=== PATIENT | male | born 1950 | race Caucasian/White ===

== ENCOUNTER 2020-11-04 12:26 | Emergency (ER) | payer MEDICARE ==
[2020-11-04] MEDS ORDERED: Acetaminophen 500 MG TAB ONE (13:06)
[2020-11-04 13:16] LABS: #Basophils 0.1 thou/uL (0.0-0.2); #Lymphocytes 0.4 thou/uL (1.20-3.40); #Monocytes 0.5 thou/uL (0.11-0.59); #Neutrophils 5.7 thou/uL (1.40-6.50); %Eosinophils 0.5 % (0.0-10.0); %Lymphocytes 5.8 % (21.0-51.0); %Monocytes 7.5 % (0.0-10.0); %Neutrophils 85.2 % (42.0-75.0); Hemoglobin 11.5 g/dL (14.0-18.0); Mean Corpuscular HGB CONC 33.6 g/dL (32.0-36.0); Mean Corpuscular Hemoglobin 31.4 pg (27.0-31.0); Mean Corpuscular Volume 93.4 fL (78.0-98.0); Mean Platelet Volume 6.8 fL (7.4-10.4); Platelet Count 213 thou/uL (130-400); RBC Distribution Width 12.7 % (11.5-14.5); Red Blood Cell (RBC) Count 3.67 mill/uL (4.70-6.10); White Blood Cell (WBC) Count 6.7 thou/uL (4.8-10.8)
[2020-11-04 13:38] LABS: ALT (SGPT) 47 U/L (8-55); AST (SGOT) 53 U/L (5-34); Albumin 4.3 g/dL (3.4-4.8); Alkaline Phosphatase 56 U/L (40-110); Anion Gap 24 mmol/L (10-20); BUN (Urea Nitrogen) 10 mg/dL (8.4-25.7); Bilirubin, Total 0.5 mg/dL (0.2-1.2); Calc. Creatinine Clearance 0 mL/min (70-130); Calcium 9.1 mg/dL (7.8-10.44); Carbon Dioxide 17 mmol/L (23-31); Chloride 91 mmol/L (98-107); Globulin 2.6 g/dL (2.4-3.5); Glucose 107 mg/dL (83-110); Potassium 3.9 mmol/L (3.5-5.1); Protein, Total 6.9 g/dL (5.8-8.1); Sodium 128 mmol/L (136-145)
[2020-11-04] MEDS ORDERED: Losartan 25 MG TAB PO SCH (15:30)
== END 2020-11-04 17:29 | disposition home or self-care (01) ==
LOC: ERS 12:26
DX: R56.9 Unspecified convulsions (principal); S50.311A Abrasion of right elbow, initial encounter; X58.XXXA Exposure to other specified factors, initial encounter
CPT/HCPCS: 36415; 70450; 72125; 80053; 84146; 84484; 85025; 93005

== ENCOUNTER 2021-03-04 21:10 | Inpatient (IN) | payer MEDICARE ==
[~2021-03-04 21:10] MED LIST: Heparin 1,000 UNITS/ML VIAL ONE
[2021-03-04 21:59] LABS: Hemoglobin 5.3 g/dL (14.0-18.0); INR-International Normal Ratio 1.2; Mean Corpuscular HGB CONC 35.4 g/dL (32.0-36.0); Mean Corpuscular Hemoglobin 33.8 pg (27.0-31.0); Mean Corpuscular Volume 95.6 fL (78.0-98.0); Mean Platelet Volume 7.6 fL (7.4-10.4); Platelet Count 201 thou/uL (130-400); Prothrombin Time 15.3 sec (12.0-14.7); RBC Distribution Width 13.5 % (11.5-14.5); Red Blood Cell (RBC) Count 1.55 mill/uL (4.70-6.10); White Blood Cell (WBC) Count 10.2 thou/uL (4.8-10.8)
[2021-03-04 22:00] LABS: PTT 31.9 sec (22.9-36.1)
[2021-03-04 22:02] LABS: ALT (SGPT) 20 U/L (8-55); AST (SGOT) 23 U/L (5-34); Albumin 2.8 g/dL (3.4-4.8); Alkaline Phosphatase 48 U/L (40-110); Anion Gap 12 mmol/L (10-20); BUN (Urea Nitrogen) 28 mg/dL (8.4-25.7); Bilirubin, Total 0.6 mg/dL (0.2-1.2); Calc. Creatinine Clearance 0 mL/min (70-130); Calcium 7.7 mg/dL (7.8-10.44); Carbon Dioxide 26 mmol/L (23-31); Chloride 86 mmol/L (98-107); Globulin 2.1 g/dL (2.4-3.5); Glucose 149 mg/dL (83-110); Potassium 3.2 mmol/L (3.5-5.1); Protein, Total 4.9 g/dL (5.8-8.1); Sodium 121 mmol/L (136-145)
[2021-03-04 22:14] LABS: Band 9 % (5-11); Lymphocytes 3 % (21-51); MDiff Complete? YES; Monocytes 3 % (0-10); Neutrophil 85 % (42-75); Nucleated RBC 1 % (0); Platelet Morphology Comment Appears Adequate
[2021-03-04 23:12] LABS: Alcohol Less than 10 mg/dL (Less than 10); Magnesium 1.4 mg/dL (1.6-2.6)
[2021-03-04 23:14] LABS: Acetaminophen Less than 6.0 mcg/mL (10.0-30.0); Alcohol Less than 10 mg/dL (Less than 10); Salicylate Less than 8.0 mg/dL (15.0-30.0)
[2021-03-04] MEDS ORDERED: Lorazepam 2 MG/ML VIAL ONE (23:31)
[2021-03-05] MEDS ORDERED: Acetaminophen 650 MG Suppository PR PRN (00:21)
[2021-03-05] MEDS ORDERED: Ondansetron PF 4 MG/2 ML Vial IVP PRN (00:21)
[2021-03-05] MEDS ORDERED: Ondansetron ODT 4 MG TAB PO PRN (00:21)
[2021-03-05] MEDS ORDERED: Pantoprazole 40 MG VIAL IVP SCH (01:00)
[2021-03-05] MEDS ORDERED: Magnesium Sulfate 4 GM in Sodium Chloride 0.9% 250 ML 250 ML IVPB SCH (01:30)
[2021-03-05 01:47] LABS: Anion Gap 12 mmol/L (10-20); BUN (Urea Nitrogen) 35 mg/dL (8.4-25.7); Calc. Creatinine Clearance 0 mL/min (70-130); Carbon Dioxide 27 mmol/L (23-31); Chloride 85 mmol/L (98-107); Glucose 134 mg/dL (83-110); Potassium 3.1 mmol/L (3.5-5.1); Sodium 121 mmol/L (136-145)
[2021-03-05] MEDS ORDERED: Diazepam 5 MG TAB PO PRN (03:33)
[2021-03-05] MEDS ORDERED: Thiamine HCl 200 MG/2 ML VIAL IM SCH (03:45)
[2021-03-05] MEDS ORDERED: Lorazepam 2 MG/ML VIAL SLOW IVP SCH (03:45)
[2021-03-05] MEDS: Potassium Chloride 20 MEQ in Premix Bag 1 BAG IVPB SCH ×3 (03:48→20:31)
[2021-03-05 05:42] LABS: #Lymphocytes 0.7 thou/uL (1.20-3.40); #Monocytes 1.3 thou/uL (0.11-0.59); #Neutrophils 10.7 thou/uL (1.40-6.50); %Basophils 0.1 % (0.0-1.0); %Eosinophils 0.2 % (0.0-10.0); %Lymphocytes 5.3 % (21.0-51.0); %Monocytes 10.3 % (0.0-10.0); %Neutrophils 84.2 % (42.0-75.0); Mean Corpuscular HGB CONC 34.9 g/dL (32.0-36.0); Mean Corpuscular Hemoglobin 32.4 pg (27.0-31.0); Mean Corpuscular Volume 92.8 fL (78.0-98.0); Mean Platelet Volume 7.7 fL (7.4-10.4); Platelet Count 213 thou/uL (130-400); RBC Distribution Width 15.2 % (11.5-14.5); Red Blood Cell (RBC) Count 1.85 mill/uL (4.70-6.10); White Blood Cell (WBC) Count 12.7 thou/uL (4.8-10.8)
[2021-03-05 06:09] LABS: Iron 113 ug/dL (65-175); Iron Binding Capacity, Total 219 mcg/dL (261-462)
[2021-03-05 06:11] LABS: Anion Gap 12 mmol/L (10-20); BUN (Urea Nitrogen) 29 mg/dL (8.4-25.7); Calc. Creatinine Clearance 0 mL/min (70-130); Carbon Dioxide 25 mmol/L (23-31); Chloride 88 mmol/L (98-107); Glucose 123 mg/dL (83-110); Potassium 3.3 mmol/L (3.5-5.1); Sodium 122 mmol/L (136-145)
[2021-03-05] MEDS ORDERED: GUAIFENESIN SF SOLN 200 MG/10 ML UDCUP PO PRN (07:31)
[2021-03-05] MEDS ORDERED: Artificial Tear Sol 15 ML BOT EA EYE PRN (07:31)
[2021-03-05] MEDS ORDERED: HYDROcodone/Acetaminophen 5/325 mg Tablet PO PRN (07:31)
[2021-03-05] MEDS ORDERED: Sodium Chloride 0.65% Nasal 44 ML BOT EA NARE PRN (07:31)
[2021-03-05] MEDS ORDERED: Hydrocerin (Eucerin) Cream 120 gm Jar TOP PRN (07:31)
[2021-03-05] MEDS ORDERED: Calcium Carbonate 500 MG ChewTAB PO PRN (07:31)
[2021-03-05] MEDS ORDERED: Loperamide HCl 2 MG CAP PO PRN (07:31)
[2021-03-05] MEDS ORDERED: Senokot S 8.6-50 MG TAB PO PRN (07:31)
[2021-03-05] MEDS ORDERED: Bisacodyl 10 MG SUPP PR PRN (07:31)
[2021-03-05] MEDS ORDERED: Cepastat Lozenges 1 LOZ PO PRN (07:31)
[2021-03-05] MEDS: Amlodipine 10 MG TAB PO SCH (08:28)
[2021-03-05] MEDS: Lisinopril 20 MG TAB PO SCH ×2 (08:28→20:33)
[2021-03-05] MEDS ORDERED: Enoxaparin Sodium 40 MG/0.4 ML SYRINGE SC SCH (09:00)
[2021-03-05] MEDS: Folic Acid 1 MG TAB PO SCH (11:30)
[2021-03-05] MEDS: Multivitamin W/ Minerals 1 TAB PO SCH (11:31)
[2021-03-05] MEDS: Metoprolol Tartrate 25 MG TAB PO SCH ×2 (11:31→20:33)
[2021-03-05 11:36] LABS: Hemoglobin 6.8 g/dL (14.0-18.0)
[2021-03-05] MEDS: Pantoprazole 40 MG VIAL IVP SCH ×2 (11:58→20:32)
[2021-03-05] MEDS ORDERED: Potassium Chloride 20 MEQ in Premix Bag 1 BAG IVPB SCH (12:15)
[2021-03-05 15:00] LABS: SARS-CoV-2 NAA Rapid Test Not Detected (NotDetected)
[2021-03-05] MEDS ORDERED: SUGAMMADEX SODIUM 200 MG/2 ML VIAL ONE (15:52)
[2021-03-05] MEDS ORDERED: Fentanyl 100 MCG/2 ML VIAL ONE (15:52)
[2021-03-05] MEDS ORDERED: PROPOFOL 200 MG/20 ML VIAL ONE (16:05)
[2021-03-05] MEDS ORDERED: Ondansetron HCl/PF 4 MG/2 ML Vial IVP PRN (16:34)
[2021-03-05] MEDS: Loratadine 10 MG TAB PO PRN (20:33)
[2021-03-05] MEDS: Atorvastatin Calcium 10 MG TAB PO SCH (20:34)
[2021-03-06 01:49] LABS: Sodium 126 mmol/L (136-145)
[2021-03-06 01:52] LABS: Hemoglobin 6.2 g/dL (14.0-18.0); Mean Corpuscular Hemoglobin 32.6 pg (27.0-31.0); Mean Corpuscular Volume 93.3 fL (78.0-98.0); Mean Platelet Volume 7.1 fL (7.4-10.4); Platelet Count 206 thou/uL (130-400); Red Blood Cell (RBC) Count 1.89 mill/uL (4.70-6.10); White Blood Cell (WBC) Count 15.9 thou/uL (4.8-10.8)
[2021-03-06 02:09] LABS: Band 19 % (5-11); Lymphocytes 1 % (21-51); MDiff Complete? YES; Monocytes 8 % (0-10); Neutrophil 72 % (42-75); Nucleated RBC 1 % (0)
[2021-03-06 02:15] LABS: ALT (SGPT) 19 U/L (8-55); AST (SGOT) 28 U/L (5-34); Albumin 2.9 g/dL (3.4-4.8); Alkaline Phosphatase 43 U/L (40-110); Anion Gap 13 mmol/L (10-20); BUN (Urea Nitrogen) 14 mg/dL (8.4-25.7); Bilirubin, Total 0.8 mg/dL (0.2-1.2); Calc. Creatinine Clearance 117 mL/min (70-130); Carbon Dioxide 26 mmol/L (23-31); Chloride 91 mmol/L (98-107); Globulin 2.3 g/dL (2.4-3.5); Glucose 121 mg/dL (83-110); Phosphorus 2.7 mg/dL (2.3-4.7); Protein, Total 5.2 g/dL (5.8-8.1); Sodium 127 mmol/L (136-145)
[2021-03-06 02:19] LABS: Potassium 2.8 mmol/L (3.5-5.1)
[2021-03-06] MEDS ORDERED: Potassium Phosphate 30 MMOL in Sodium Chloride 0.9% 250 ML 250 ML IVPB SCH (03:30)
[2021-03-06 03:35] LABS: Magnesium 1.7 mg/dL (1.6-2.6)
[2021-03-06] MEDS: Labetalol HCl 100 MG/20 ML VIAL SLOW IVP PRN (04:42)
[2021-03-06] MEDS: Acetaminophen 325 MG TAB PO PRN ×2 (05:17→15:39)
[2021-03-06] MEDS ORDERED: Electrolyte Replacement Protocol 1 EACH FS PRN (05:45)
[2021-03-06] MEDS ORDERED: Magnesium Sulfate 2 GM in Sodium Chloride 0.9% 100 ML IVPB SCH (05:45)
[2021-03-06] MEDS ORDERED: Piperacillin/Tazobactam 3.375 GM in Sodium Chloride 0.9% 100 ML IVPB SCH (06:00)
[2021-03-06] MEDS ORDERED: Magnesium 2 GM/50 ML 2 GM in Premix Bag 1 BAG IVPB SCH (06:00)
[2021-03-06] MEDS ORDERED: Potassium Chloride 20 MEQ TAB PO SCH ×2 (06:45→12:30)
[2021-03-06] MEDS: Vancomycin 1.5 GRAM/300 ML BAG 1.5 GM in Premix Bag 1 BAG IVPB SCH ×2 (07:43→17:06)
[2021-03-06 07:44] LABS: Sodium 129 mmol/L (136-145)
[2021-03-06] MEDS ORDERED: VANCOMYCIN 1.25 GM/250 ML BAG 1.25 GM in Premix Bag 1 BAG IVPB SCH (09:00)
[2021-03-06] MEDS: Pantoprazole 40 MG VIAL IVP SCH ×2 (09:44→21:38)
[2021-03-06] MEDS: Cyanocobalamin (Vitamin B-12) 1,000 MCG TAB PO SCH (09:51)
[2021-03-06] MEDS: Magnesium Oxide 400 MG TAB PO SCH (09:51)
[2021-03-06] MEDS: Lisinopril 20 MG TAB PO SCH ×2 (09:52→21:37)
[2021-03-06] MEDS: Folic Acid 1 MG TAB PO SCH (09:53)
[2021-03-06] MEDS: Thiamine 100 MG TAB PO SCH (09:53)
[2021-03-06] MEDS: Metoprolol Tartrate 25 MG TAB PO SCH ×2 (09:53→21:37)
[2021-03-06] MEDS: Amlodipine 10 MG TAB PO SCH (09:55)
[2021-03-06] MEDS: Multivitamin W/ Minerals 1 TAB PO SCH (09:56)
[2021-03-06 11:45] LABS: Hemoglobin 7.2 g/dL (14.0-18.0)
[2021-03-06 11:55] LABS: Bacteria/HPF None Seen HPF (None Seen); RBC/HPF 0-3 HPF (0-3); Squamous Epithelial None Seen HPF (0-3); WBC/HPF 0-3 HPF (0-3)
[2021-03-06 11:56] LABS: Bilirubin Negative (Negative); Blood, Urine Negative (Negative); Glucose, Urine (Dipstick) Negative (Negative); Ketone, Urine Trace mg/dL (Negative); Leukocyte Negative (Negative); Nitrite Negative (Negative); Protein, Urine (Dipstick) Trace mg/dL (Neg-Trace); Specific Gravity, Urine 1.015 (1.005-1.030); Urobilinogen 0.2 mg/dL (Less than 2); pH, Urine 5.5 (5.0-9.0)
[2021-03-06 12:01] LABS: Clarity Clear (Clear)
[2021-03-06 12:03] LABS: Urine Culture Reflex No No
[2021-03-06 12:18] LABS: Sodium, Urine 30 mmol/L (Not Available); Urea Nitrogen, Random Urine 507 mg/dl
[2021-03-06 12:22] LABS: Potassium 2.9 mmol/L (3.5-5.1)
[2021-03-06 13:38] LABS: Sodium 130 mmol/L (136-145)
[2021-03-06] MEDS: Piperacillin/Tazobactam 3.375 GM in Sodium Chloride 0.9% 100 ML IVPB SCH ×2 (13:55→21:38)
[2021-03-06] MEDS: Diazepam 5 MG TAB PO PRN (14:36)
[2021-03-06] MEDS ORDERED: Iopamidol-370 76% 500 ML 1 ML ONE (16:16)
[2021-03-06 20:07] LABS: Sodium 129 mmol/L (136-145)
[2021-03-06] MEDS: Atorvastatin Calcium 10 MG TAB PO SCH (21:37)
[2021-03-06] MEDS: Loratadine 10 MG TAB PO PRN (21:38)
[2021-03-07] MEDS: Acetaminophen 325 MG TAB PO PRN ×3 (00:03→18:15)
[2021-03-07 01:20] LABS: Sodium 127 mmol/L (136-145)
[2021-03-07 05:40] LABS: Hemoglobin 7.3 g/dL (14.0-18.0); Mean Corpuscular HGB CONC 34.4 g/dL (32.0-36.0); Mean Corpuscular Hemoglobin 32.5 pg (27.0-31.0); Mean Corpuscular Volume 94.6 fL (78.0-98.0); Mean Platelet Volume 7.3 fL (7.4-10.4); Platelet Count 242 thou/uL (130-400); RBC Distribution Width 15.2 % (11.5-14.5); Red Blood Cell (RBC) Count 2.25 mill/uL (4.70-6.10); White Blood Cell (WBC) Count 16.7 thou/uL (4.8-10.8)
[2021-03-07 06:02] LABS: Band 14 % (5-11); Lymphocytes 4 % (21-51); MDiff Complete? YES; Metamyelocyte 1 % (0-0); Monocytes 6 % (0-10); Myelocyte 1 % (0-0); Neutrophil 74 % (42-75)
[2021-03-07 06:09] LABS: ALT (SGPT) 24 U/L (8-55); AST (SGOT) 33 U/L (5-34); Alkaline Phosphatase 63 U/L (40-110); Anion Gap 9 mmol/L (10-20); BUN (Urea Nitrogen) 9 mg/dL (8.4-25.7); Bilirubin, Total 0.8 mg/dL (0.2-1.2); Calc. Creatinine Clearance 110 mL/min (70-130); Calcium 8.3 mg/dL (7.8-10.44); Carbon Dioxide 33 mmol/L (23-31); Chloride 91 mmol/L (98-107); Globulin 2.6 g/dL (2.4-3.5); Glucose 114 mg/dL (83-110); Magnesium 1.8 mg/dL (1.6-2.6); Potassium 2.6 mmol/L (3.5-5.1); Protein, Total 5.6 g/dL (5.8-8.1); Sodium 130 mmol/L (136-145)
[2021-03-07] MEDS ORDERED: Magnesium 2 GM/50 ML 2 GM in Premix Bag 1 BAG IVPB SCH (06:15)
[2021-03-07 06:32] LABS: Sodium 130 mmol/L (136-145)
[2021-03-07] MEDS: Potassium Chloride 20 MEQ TAB PO SCH ×2 (07:03→11:02)
[2021-03-07] MEDS: Vancomycin 1.5 GRAM/300 ML BAG 1.5 GM in Premix Bag 1 BAG IVPB SCH (07:06)
[2021-03-07] MEDS: Piperacillin/Tazobactam 3.375 GM in Sodium Chloride 0.9% 100 ML IVPB SCH (07:07)
[2021-03-07] MEDS: Thiamine 100 MG TAB PO SCH (08:32)
[2021-03-07] MEDS: Magnesium Oxide 400 MG TAB PO SCH (08:32)
[2021-03-07] MEDS: Cyanocobalamin (Vitamin B-12) 1,000 MCG TAB PO SCH (08:32)
[2021-03-07] MEDS: Metoprolol Tartrate 25 MG TAB PO SCH ×2 (08:32→22:25)
[2021-03-07] MEDS: Multivitamin W/ Minerals 1 TAB PO SCH (08:32)
[2021-03-07] MEDS: Amlodipine 10 MG TAB PO SCH (08:32)
[2021-03-07] MEDS: Lisinopril 20 MG TAB PO SCH ×2 (08:33→22:25)
[2021-03-07] MEDS: Pantoprazole 40 MG VIAL IVP SCH ×2 (08:33→22:26)
[2021-03-07] MEDS: Folic Acid 1 MG TAB PO SCH (08:33)
[2021-03-07 14:48] LABS: Potassium 3.2 mmol/L (3.5-5.1)
[2021-03-07] MEDS: CEFAZOLIN 2 GM in Premix Bag 1 BAG IVPB SCH ×2 (15:41→22:26)
[2021-03-07] MEDS: Atorvastatin Calcium 10 MG TAB PO SCH (22:25)
[2021-03-08 00:09] LABS: Anion Gap 12 mmol/L (10-20); BUN (Urea Nitrogen) 8 mg/dL (8.4-25.7); Calc. Creatinine Clearance 118 mL/min (70-130); Calcium 8.1 mg/dL (7.8-10.44); Carbon Dioxide 31 mmol/L (23-31); Chloride 87 mmol/L (98-107); Glucose 103 mg/dL (83-110); Magnesium 1.7 mg/dL (1.6-2.6); Sodium 127 mmol/L (136-145)
[2021-03-08 00:12] LABS: Potassium 2.9 mmol/L (3.5-5.1)
[2021-03-08 00:14] LABS: Troponin I 0.035 ng/mL (< 0.028)
[2021-03-08] MEDS ORDERED: Magnesium 2 GM/50 ML 2 GM in Premix Bag 1 BAG IVPB SCH (00:45)
[2021-03-08] MEDS ORDERED: Electrolyte Replacement Protocol FS PRN (00:45)
[2021-03-08] MEDS: Potassium Chloride 40 MEQ in Sodium Chloride 0.9% 250 ML 250 ML IVPB SCH ×2 (01:40→05:34)
[2021-03-08] MEDS: CEFAZOLIN 2 GM in Premix Bag 1 BAG IVPB SCH ×3 (05:38→21:10)
[2021-03-08 05:43] LABS: Hemoglobin 7.9 g/dL (14.0-18.0); Mean Corpuscular HGB CONC 33.1 g/dL (32.0-36.0); Mean Corpuscular Hemoglobin 31.5 pg (27.0-31.0); Mean Corpuscular Volume 95.1 fL (78.0-98.0); Mean Platelet Volume 7.6 fL (7.4-10.4); Platelet Count 261 thou/uL (130-400); RBC Distribution Width 14.5 % (11.5-14.5); Red Blood Cell (RBC) Count 2.51 mill/uL (4.70-6.10); White Blood Cell (WBC) Count 17.6 thou/uL (4.8-10.8)
[2021-03-08 05:53] LABS: Anion Gap 14 mmol/L (10-20); BUN (Urea Nitrogen) 9 mg/dL (8.4-25.7); Calc. Creatinine Clearance 115 mL/min (70-130); Calcium 8.4 mg/dL (7.8-10.44); Carbon Dioxide 29 mmol/L (23-31); Chloride 88 mmol/L (98-107); Glucose 100 mg/dL (83-110); Potassium 3.1 mmol/L (3.5-5.1); Sodium 128 mmol/L (136-145)
[2021-03-08 07:45] LABS: Band 17 % (5-11); MDiff Complete? YES; Neutrophil 77 % (42-75)
[2021-03-08 07:46] LABS: Lymphocytes 2 % (21-51); Monocytes 4 % (0-10); Platelet Morphology Comment Appears Adequate; Polychromasia SLIGHT = 2-3 cells (100X) (0-2/hpf)
[2021-03-08] MEDS: Metoprolol Tartrate 25 MG TAB PO SCH ×2 (09:03→21:23)
[2021-03-08] MEDS: Labetalol HCl 100 MG/20 ML VIAL SLOW IVP PRN (09:10)
[2021-03-08] MEDS: Pantoprazole 40 MG VIAL IVP SCH ×2 (11:01→21:22)
[2021-03-08] MEDS: Magnesium Oxide 400 MG TAB PO SCH (11:05)
[2021-03-08] MEDS: Thiamine 100 MG TAB PO SCH (11:05)
[2021-03-08] MEDS: Multivitamin W/ Minerals 1 TAB PO SCH (11:05)
[2021-03-08] MEDS: Folic Acid 1 MG TAB PO SCH (11:05)
[2021-03-08] MEDS: Cyanocobalamin (Vitamin B-12) 1,000 MCG TAB PO SCH (11:05)
[2021-03-08] MEDS: Lisinopril 20 MG TAB PO SCH ×2 (11:05→21:23)
[2021-03-08] MEDS: Amlodipine 10 MG TAB PO SCH (11:06)
[2021-03-08] MEDS ORDERED: PROPOFOL 0 ML ONE (14:07)
[2021-03-08] MEDS ORDERED: PROPOFOL 40 ML ONE (14:10)
[2021-03-08] MEDS: Atorvastatin Calcium 10 MG TAB PO SCH (21:23)
[2021-03-09 05:01] LABS: #Lymphocytes 0.7 thou/uL (1.20-3.40); #Monocytes 1.5 thou/uL (0.11-0.59); #Neutrophils 14.6 thou/uL (1.40-6.50); %Basophils 0.2 % (0.0-1.0); %Eosinophils 0.1 % (0.0-10.0); %Lymphocytes 4.1 % (21.0-51.0); %Monocytes 8.7 % (0.0-10.0); %Neutrophils 86.9 % (42.0-75.0); Hemoglobin 6.8 g/dL (14.0-18.0); Mean Corpuscular HGB CONC 33.9 g/dL (32.0-36.0); Mean Corpuscular Hemoglobin 32.1 pg (27.0-31.0); Mean Corpuscular Volume 94.6 fL (78.0-98.0); Mean Platelet Volume 7.9 fL (7.4-10.4); Platelet Count 275 thou/uL (130-400); RBC Distribution Width 14.5 % (11.5-14.5); Red Blood Cell (RBC) Count 2.11 mill/uL (4.70-6.10); White Blood Cell (WBC) Count 16.8 thou/uL (4.8-10.8)
[2021-03-09 05:21] LABS: Anion Gap 11 mmol/L (10-20); BUN (Urea Nitrogen) 9 mg/dL (8.4-25.7); Calc. Creatinine Clearance 126 mL/min (70-130); Calcium 7.8 mg/dL (7.8-10.44); Carbon Dioxide 30 mmol/L (23-31); Chloride 84 mmol/L (98-107); Glucose 99 mg/dL (83-110); Sodium 122 mmol/L (136-145)
[2021-03-09 05:31] LABS: Potassium 2.5 mmol/L (3.5-5.1)
[2021-03-09] MEDS: Labetalol HCl 100 MG/20 ML VIAL SLOW IVP PRN (06:26)
[2021-03-09] MEDS: CEFAZOLIN 2 GM in Premix Bag 1 BAG IVPB SCH ×3 (06:27→22:34)
[2021-03-09] MEDS: Potassium Chloride 20 MEQ TAB PO SCH ×2 (06:29→08:53)
[2021-03-09] MEDS: Amlodipine 10 MG TAB PO SCH (08:52)
[2021-03-09] MEDS: Multivitamin W/ Minerals 1 TAB PO SCH (08:52)
[2021-03-09] MEDS: Magnesium Oxide 400 MG TAB PO SCH (08:52)
[2021-03-09] MEDS: Metoprolol Tartrate 25 MG TAB PO SCH ×3 (08:52→22:27)
[2021-03-09] MEDS: Thiamine 100 MG TAB PO SCH (08:52)
[2021-03-09] MEDS: Folic Acid 1 MG TAB PO SCH (08:52)
[2021-03-09] MEDS: Lisinopril 20 MG TAB PO SCH ×2 (08:52→22:28)
[2021-03-09] MEDS: Diazepam 5 MG TAB PO PRN (09:00)
[2021-03-09] MEDS ORDERED: Metoprolol Tartrate 25 MG TAB PO SCH (09:30)
[2021-03-09] MEDS: Diltiazem 125 MG in Sodium Chloride 0.9% 100 ML IVPB SCH (10:08)
[2021-03-09 12:18] LABS: Potassium, Urine 47.4 mmol/L
[2021-03-09] MEDS: Acetaminophen 325 MG TAB PO PRN (16:53)
[2021-03-09 17:56] LABS: Hemoglobin 8.4 g/dL (14.0-18.0); Platelet Count 295 thou/uL (130-400)
[2021-03-09] MEDS: Atorvastatin Calcium 10 MG TAB PO SCH (22:28)
[2021-03-10 04:49] LABS: #Eosinphils 0.1 thou/uL (0.0-0.7); #Lymphocytes 0.8 thou/uL (1.20-3.40); #Monocytes 1.5 thou/uL (0.11-0.59); #Neutrophils 14.5 thou/uL (1.40-6.50); %Eosinophils 0.4 % (0.0-10.0); %Lymphocytes 4.5 % (21.0-51.0); %Monocytes 8.9 % (0.0-10.0); %Neutrophils 86.2 % (42.0-75.0); Hemoglobin 8.5 g/dL (14.0-18.0); Mean Corpuscular HGB CONC 34.7 g/dL (32.0-36.0); Mean Corpuscular Hemoglobin 31.7 pg (27.0-31.0); Mean Corpuscular Volume 91.4 fL (78.0-98.0); Platelet Count 305 thou/uL (130-400); RBC Distribution Width 14.8 % (11.5-14.5); Red Blood Cell (RBC) Count 2.66 mill/uL (4.70-6.10); White Blood Cell (WBC) Count 16.9 thou/uL (4.8-10.8)
[2021-03-10 05:08] LABS: Anion Gap 12 mmol/L (10-20); BUN (Urea Nitrogen) 8 mg/dL (8.4-25.7); Calc. Creatinine Clearance 126 mL/min (70-130); Calcium 7.9 mg/dL (7.8-10.44); Carbon Dioxide 28 mmol/L (23-31); Chloride 85 mmol/L (98-107); Glucose 118 mg/dL (83-110); Sodium 122 mmol/L (136-145)
[2021-03-10 05:12] LABS: Potassium 2.9 mmol/L (3.5-5.1)
[2021-03-10] MEDS: CEFAZOLIN 2 GM in Premix Bag 1 BAG IVPB SCH ×3 (06:18→22:24)
[2021-03-10] MEDS ORDERED: Potassium Chloride 20 MEQ TAB PO SCH ×2 (07:00→08:00)
[2021-03-10] MEDS: Potassium Chloride 20 MEQ TAB PO SCH ×3 (08:13→19:03)
[2021-03-10] MEDS: Thiamine 100 MG TAB PO SCH (09:38)
[2021-03-10] MEDS: Metoprolol Tartrate 25 MG TAB PO SCH ×2 (09:39→20:35)
[2021-03-10] MEDS: Amlodipine 10 MG TAB PO SCH (09:39)
[2021-03-10] MEDS: Lisinopril 20 MG TAB PO SCH ×2 (09:39→20:36)
[2021-03-10] MEDS: Folic Acid 1 MG TAB PO SCH (09:39)
[2021-03-10] MEDS: Magnesium Oxide 400 MG TAB PO SCH (09:39)
[2021-03-10] MEDS: Acetaminophen 325 MG TAB PO PRN ×2 (09:39→23:39)
[2021-03-10] MEDS: Multivitamin W/ Minerals 1 TAB PO SCH (09:39)
[2021-03-10] MEDS: Diltiazem 125 MG in Sodium Chloride 0.9% 100 ML IVPB SCH (09:43)
[2021-03-10 13:47] LABS: Phosphorus 2.3 mg/dL (2.3-4.7)
[2021-03-10 13:48] LABS: Anion Gap 13 mmol/L (10-20); BUN (Urea Nitrogen) 7 mg/dL (8.4-25.7); Calc. Creatinine Clearance 120 mL/min (70-130); Calcium 8.3 mg/dL (7.8-10.44); Carbon Dioxide 28 mmol/L (23-31); Chloride 85 mmol/L (98-107); Glucose 105 mg/dL (83-110); Magnesium 1.6 mg/dL (1.6-2.6); Potassium 3.1 mmol/L (3.5-5.1); Sodium 123 mmol/L (136-145)
[2021-03-10] MEDS: Sodium Chloride 1 GM TAB PO SCH ×2 (13:57→20:37)
[2021-03-10] MEDS ORDERED: Magnesium 2 GM/50 ML 2 GM in Premix Bag 1 BAG IVPB SCH (14:00)
[2021-03-10] MEDS: Atorvastatin Calcium 10 MG TAB PO SCH (20:35)
[2021-03-10] MEDS ORDERED: Potassium Phosphate 30 MMOL in Sodium Chloride 0.9% 250 ML 250 ML IVPB SCH (21:00)
[2021-03-11] MEDS: Potassium Chloride 20 MEQ TAB PO SCH ×3 (02:24→13:56)
[2021-03-11] MEDS: CEFAZOLIN 2 GM in Premix Bag 1 BAG IVPB SCH ×3 (06:20→21:04)
[2021-03-11 07:59] LABS: Anion Gap 12 mmol/L (10-20); BUN (Urea Nitrogen) 5 mg/dL (8.4-25.7); Calc. Creatinine Clearance 122 mL/min (70-130); Calcium 8.2 mg/dL (7.8-10.44); Carbon Dioxide 27 mmol/L (23-31); Chloride 90 mmol/L (98-107); Glucose 109 mg/dL (83-110); Potassium 3.8 mmol/L (3.5-5.1); Sodium 125 mmol/L (136-145)
[2021-03-11] MEDS: Sodium Chloride 1 GM TAB PO SCH ×3 (09:08→21:06)
[2021-03-11] MEDS: Metoprolol Tartrate 25 MG TAB PO SCH ×2 (09:08→21:05)
[2021-03-11] MEDS: Magnesium Oxide 400 MG TAB PO SCH (09:08)
[2021-03-11] MEDS: Multivitamin W/ Minerals 1 TAB PO SCH (09:09)
[2021-03-11] MEDS: Thiamine 100 MG TAB PO SCH (09:09)
[2021-03-11] MEDS: Lisinopril 20 MG TAB PO SCH ×2 (09:09→21:05)
[2021-03-11] MEDS: Folic Acid 1 MG TAB PO SCH (09:09)
[2021-03-11] MEDS ORDERED: Hydrochlorothiazide 25 MG TAB PO SCH (13:15)
[2021-03-11] MEDS: Acetaminophen 325 MG TAB PO PRN (15:59)
[2021-03-11] MEDS: Atorvastatin Calcium 10 MG TAB PO SCH (21:06)
[2021-03-12 04:48] LABS: Anion Gap 13 mmol/L (10-20); BUN (Urea Nitrogen) 7 mg/dL (8.4-25.7); Calc. Creatinine Clearance 130 mL/min (70-130); Calcium 8.7 mg/dL (7.8-10.44); Carbon Dioxide 30 mmol/L (23-31); Chloride 86 mmol/L (98-107); Glucose 106 mg/dL (83-110); Magnesium 1.4 mg/dL (1.6-2.6); Potassium 3.5 mmol/L (3.5-5.1); Sodium 125 mmol/L (136-145)
[2021-03-12] MEDS ORDERED: Potassium Chloride 20 MEQ TAB PO SCH ×2 (05:00→14:00)
[2021-03-12] MEDS: CEFAZOLIN 2 GM in Premix Bag 1 BAG IVPB SCH ×3 (05:11→22:36)
[2021-03-12] MEDS ORDERED: Magnesium Sulfate 4 GM in Sodium Chloride 0.9% 250 ML 250 ML IVPB SCH (05:30)
[2021-03-12] MEDS: Sodium Chloride 1 GM TAB PO SCH ×3 (08:40→22:36)
[2021-03-12] MEDS: Folic Acid 1 MG TAB PO SCH (08:40)
[2021-03-12] MEDS: Lisinopril 20 MG TAB PO SCH ×2 (08:40→22:35)
[2021-03-12] MEDS: Thiamine 100 MG TAB PO SCH (08:40)
[2021-03-12] MEDS: Magnesium Oxide 400 MG TAB PO SCH (08:40)
[2021-03-12] MEDS: Metoprolol Tartrate 25 MG TAB PO SCH ×2 (08:40→22:36)
[2021-03-12] MEDS: Multivitamin W/ Minerals 1 TAB PO SCH (08:41)
[2021-03-12] MEDS ORDERED: Hydrochlorothiazide 25 MG TAB PO SCH (09:00)
[2021-03-12] MEDS: Acetaminophen 325 MG TAB PO PRN (15:02)
[2021-03-12] MEDS: Atorvastatin Calcium 10 MG TAB PO SCH (22:35)
[2021-03-13] MEDS: CEFAZOLIN 2 GM in Premix Bag 1 BAG IVPB SCH ×3 (05:09→20:14)
[2021-03-13] MEDS: hydrALAZINE 20 MG/ML VIAL SLOW IVP PRN (05:09)
[2021-03-13 07:34] LABS: Albumin 2.9 g/dL (3.4-4.8); Anion Gap 14 mmol/L (10-20); BUN (Urea Nitrogen) 6 mg/dL (8.4-25.7); BUN/Creatinine Ratio 8.45; Calc. Creatinine Clearance 113 mL/min (70-130); Calcium 8.3 mg/dL (7.8-10.44); Carbon Dioxide 25 mmol/L (23-31); Chloride 86 mmol/L (98-107); Glucose 108 mg/dL (83-110); Phosphorus 3.5 mg/dL (2.3-4.7); Potassium 3.2 mmol/L (3.5-5.1); Sodium 122 mmol/L (136-145)
[2021-03-13] MEDS ORDERED: Sodium Chloride 0.9% 500 ML IV SCH (07:45)
[2021-03-13] MEDS: Metoprolol Tartrate 25 MG TAB PO SCH ×2 (09:20→20:16)
[2021-03-13] MEDS: Magnesium Oxide 400 MG TAB PO SCH (09:20)
[2021-03-13] MEDS: Potassium Chloride 20 MEQ TAB PO SCH ×3 (09:20→15:37)
[2021-03-13] MEDS: Thiamine 100 MG TAB PO SCH ×2 (09:20→09:21)
[2021-03-13] MEDS: Multivitamin W/ Minerals 1 TAB PO SCH (09:20)
[2021-03-13] MEDS: Sodium Chloride 1 GM TAB PO SCH ×3 (09:20→20:15)
[2021-03-13] MEDS: Lisinopril 20 MG TAB PO SCH ×2 (09:20→20:16)
[2021-03-13] MEDS: Folic Acid 1 MG TAB PO SCH (09:21)
[2021-03-13] MEDS: hydrALAZINE 25 MG TAB PO SCH ×3 (09:28→20:15)
[2021-03-13] MEDS: Acetaminophen 325 MG TAB PO PRN (12:56)
[2021-03-13 17:26] LABS: Anion Gap 12 mmol/L (10-20); BUN (Urea Nitrogen) 8 mg/dL (8.4-25.7); Calc. Creatinine Clearance 94 mL/min (70-130); Calcium 8.1 mg/dL (7.8-10.44); Carbon Dioxide 26 mmol/L (23-31); Chloride 89 mmol/L (98-107); Glucose 174 mg/dL (83-110); Potassium 3.8 mmol/L (3.5-5.1); Sodium 123 mmol/L (136-145)
[2021-03-13] MEDS: Atorvastatin Calcium 10 MG TAB PO SCH (20:15)
[2021-03-14 05:01] LABS: Albumin 2.8 g/dL (3.4-4.8); Anion Gap 11 mmol/L (10-20); BUN (Urea Nitrogen) 8 mg/dL (8.4-25.7); BUN/Creatinine Ratio 10.39; Calc. Creatinine Clearance 104 mL/min (70-130); Calcium 8.3 mg/dL (7.8-10.44); Carbon Dioxide 28 mmol/L (23-31); Chloride 90 mmol/L (98-107); Glucose 119 mg/dL (83-110); Magnesium 1.6 mg/dL (1.6-2.6); Phosphorus 2.8 mg/dL (2.3-4.7); Potassium 3.7 mmol/L (3.5-5.1); Sodium 125 mmol/L (136-145)
[2021-03-14] MEDS: CEFAZOLIN 2 GM in Premix Bag 1 BAG IVPB SCH ×3 (05:21→21:29)
[2021-03-14 07:30] LABS: #Lymphocytes 0.6 thou/uL (1.20-3.40); #Monocytes 1.2 thou/uL (0.11-0.59); #Neutrophils 10.6 thou/uL (1.40-6.50); %Basophils 0.1 % (0.0-1.0); %Eosinophils 0.3 % (0.0-10.0); %Monocytes 9.7 % (0.0-10.0); %Neutrophils 84.9 % (42.0-75.0); Hemoglobin 7.9 g/dL (14.0-18.0); Mean Corpuscular HGB CONC 32.3 g/dL (32.0-36.0); Mean Corpuscular Hemoglobin 30.7 pg (27.0-31.0); Mean Platelet Volume 8.2 fL (7.4-10.4); Platelet Count 393 thou/uL (130-400); RBC Distribution Width 14.7 % (11.5-14.5); Red Blood Cell (RBC) Count 2.58 mill/uL (4.70-6.10); White Blood Cell (WBC) Count 12.5 thou/uL (4.8-10.8)
[2021-03-14] MEDS ORDERED: Magnesium Sulfate 4 GM in Sodium Chloride 0.9% 250 ML 250 ML IVPB SCH (07:30)
[2021-03-14] MEDS ORDERED: Potassium Chloride 20 MEQ TAB PO SCH (08:00)
[2021-03-14] MEDS: Sodium Chloride 1 GM TAB PO SCH ×3 (08:45→21:30)
[2021-03-14] MEDS: hydrALAZINE 25 MG TAB PO SCH ×3 (08:45→21:31)
[2021-03-14] MEDS: Multivitamin W/ Minerals 1 TAB PO SCH (08:45)
[2021-03-14] MEDS: Folic Acid 1 MG TAB PO SCH (08:45)
[2021-03-14] MEDS: Magnesium Oxide 400 MG TAB PO SCH (08:46)
[2021-03-14] MEDS: Lisinopril 20 MG TAB PO SCH ×2 (08:46→21:31)
[2021-03-14] MEDS: Metoprolol Tartrate 25 MG TAB PO SCH ×2 (08:46→21:31)
[2021-03-14] MEDS: Thiamine 100 MG TAB PO SCH (08:47)
[2021-03-14] MEDS: Atorvastatin Calcium 10 MG TAB PO SCH (21:30)
[2021-03-15 05:34] LABS: Albumin 3.1 g/dL (3.4-4.8); Anion Gap 12 mmol/L (10-20); BUN (Urea Nitrogen) 10 mg/dL (8.4-25.7); BUN/Creatinine Ratio 13.16; Calc. Creatinine Clearance 106 mL/min (70-130); Calcium 8.5 mg/dL (7.8-10.44); Carbon Dioxide 24 mmol/L (23-31); Chloride 95 mmol/L (98-107); Glucose 114 mg/dL (83-110); Phosphorus 3.1 mg/dL (2.3-4.7); Potassium 3.4 mmol/L (3.5-5.1); Sodium 128 mmol/L (136-145)
[2021-03-15] MEDS: CEFAZOLIN 2 GM in Premix Bag 1 BAG IVPB SCH ×3 (05:42→20:40)
[2021-03-15] MEDS ORDERED: Potassium Chloride 20 MEQ TAB PO SCH ×2 (06:30→06:45)
[2021-03-15] MEDS: Magnesium Oxide 400 MG TAB PO SCH ×2 (09:25→20:40)
[2021-03-15] MEDS: Potassium Chloride 20 MEQ TAB PO SCH ×2 (09:26→20:40)
[2021-03-15] MEDS: Folic Acid 1 MG TAB PO SCH (09:26)
[2021-03-15] MEDS: Thiamine 100 MG TAB PO SCH (09:26)
[2021-03-15] MEDS: Lisinopril 20 MG TAB PO SCH ×2 (09:26→20:40)
[2021-03-15] MEDS: Sodium Chloride 1 GM TAB PO SCH ×3 (09:26→20:40)
[2021-03-15] MEDS: Metoprolol Tartrate 25 MG TAB PO SCH ×2 (09:26→20:40)
[2021-03-15] MEDS: Multivitamin W/ Minerals 1 TAB PO SCH (09:27)
[2021-03-15] MEDS: Acetaminophen 325 MG TAB PO PRN (09:27)
[2021-03-15] MEDS: hydrALAZINE 25 MG TAB PO SCH ×3 (09:27→20:41)
[2021-03-15 12:27] LABS: Anion Gap 8 mmol/L (10-20); BUN (Urea Nitrogen) 10 mg/dL (8.4-25.7); Calc. Creatinine Clearance 108 mL/min (70-130); Calcium 8.3 mg/dL (7.8-10.44); Carbon Dioxide 26 mmol/L (23-31); Chloride 98 mmol/L (98-107); Glucose 108 mg/dL (83-110); Potassium 3.9 mmol/L (3.5-5.1); Sodium 128 mmol/L (136-145)
[2021-03-15] MEDS: Atorvastatin Calcium 10 MG TAB PO SCH (20:41)
[2021-03-16] MEDS: Acetaminophen 325 MG TAB PO PRN ×2 (01:40→09:27)
[2021-03-16 04:42] LABS: Albumin 2.9 g/dL (3.4-4.8); Anion Gap 11 mmol/L (10-20); BUN (Urea Nitrogen) 10 mg/dL (8.4-25.7); BUN/Creatinine Ratio 13.89; Calc. Creatinine Clearance 107 mL/min (70-130); Calcium 8.5 mg/dL (7.8-10.44); Carbon Dioxide 23 mmol/L (23-31); Chloride 98 mmol/L (98-107); Glucose 118 mg/dL (83-110); Phosphorus 3.2 mg/dL (2.3-4.7); Potassium 4.4 mmol/L (3.5-5.1); Sodium 128 mmol/L (136-145)
[2021-03-16] MEDS: CEFAZOLIN 2 GM in Premix Bag 1 BAG IVPB SCH ×3 (06:08→21:56)
[2021-03-16] MEDS: Thiamine 100 MG TAB PO SCH (09:25)
[2021-03-16] MEDS: hydrALAZINE 25 MG TAB PO SCH ×3 (09:26→20:52)
[2021-03-16] MEDS: Lisinopril 20 MG TAB PO SCH ×2 (09:26→20:52)
[2021-03-16] MEDS: Multivitamin W/ Minerals 1 TAB PO SCH (09:26)
[2021-03-16] MEDS: Potassium Chloride 20 MEQ TAB PO SCH ×2 (09:26→20:53)
[2021-03-16] MEDS: Metoprolol Tartrate 25 MG TAB PO SCH ×2 (09:26→20:53)
[2021-03-16] MEDS: Magnesium Oxide 400 MG TAB PO SCH ×2 (09:26→20:52)
[2021-03-16] MEDS: Folic Acid 1 MG TAB PO SCH (09:26)
[2021-03-16] MEDS: Sodium Chloride 1 GM TAB PO SCH ×3 (09:26→20:51)
[2021-03-16] MEDS: Atorvastatin Calcium 10 MG TAB PO SCH (20:52)
[2021-03-16] MEDS ORDERED: Diazepam 5 MG TAB PO PRN ×2 (22:07→22:08)
[2021-03-17] MEDS: Acetaminophen 325 MG TAB PO PRN (05:01)
[2021-03-17] MEDS: CEFAZOLIN 2 GM in Premix Bag 1 BAG IVPB SCH ×3 (05:02→22:23)
[2021-03-17] MEDS: Magnesium Oxide 400 MG TAB PO SCH ×2 (07:42→20:31)
[2021-03-17] MEDS: Folic Acid 1 MG TAB PO SCH (07:42)
[2021-03-17] MEDS: Potassium Chloride 20 MEQ TAB PO SCH ×2 (07:42→17:27)
[2021-03-17] MEDS: Metoprolol Tartrate 25 MG TAB PO SCH ×2 (07:42→20:31)
[2021-03-17] MEDS: Lisinopril 20 MG TAB PO SCH ×2 (07:43→20:32)
[2021-03-17] MEDS: Multivitamin W/ Minerals 1 TAB PO SCH (07:43)
[2021-03-17] MEDS: Thiamine 100 MG TAB PO SCH (07:43)
[2021-03-17] MEDS: hydrALAZINE 25 MG TAB PO SCH ×3 (07:44→20:29)
[2021-03-17 08:28] LABS: Anion Gap 12 mmol/L (10-20); BUN (Urea Nitrogen) 10 mg/dL (8.4-25.7); Calc. Creatinine Clearance 104 mL/min (70-130); Calcium 8.7 mg/dL (7.8-10.44); Carbon Dioxide 21 mmol/L (23-31); Chloride 99 mmol/L (98-107); Glucose 102 mg/dL (83-110); Potassium 4.4 mmol/L (3.5-5.1); Sodium 128 mmol/L (136-145)
[2021-03-17] MEDS: Sodium Chloride 1 GM TAB PO SCH ×3 (10:08→20:32)
[2021-03-17] MEDS ORDERED: Sodium Chloride 1 GM TAB PO SCH ×2 (12:03→12:45)
[2021-03-17] MEDS: Atorvastatin Calcium 10 MG TAB PO SCH (20:31)
[2021-03-18] MEDS: hydrALAZINE 20 MG/ML VIAL SLOW IVP PRN (04:24)
[2021-03-18 04:50] LABS: Anion Gap 12 mmol/L (10-20); BUN (Urea Nitrogen) 9 mg/dL (8.4-25.7); Calc. Creatinine Clearance 110 mL/min (70-130); Calcium 8.4 mg/dL (7.8-10.44); Carbon Dioxide 19 mmol/L (23-31); Chloride 100 mmol/L (98-107); Glucose 103 mg/dL (83-110); Sodium 127 mmol/L (136-145)
[2021-03-18] MEDS: CEFAZOLIN 2 GM in Premix Bag 1 BAG IVPB SCH ×3 (05:28→21:18)
[2021-03-18] MEDS: Acetaminophen 325 MG TAB PO PRN ×3 (06:25→14:32)
[2021-03-18] MEDS: Sodium Chloride 1 GM TAB PO SCH (09:25)
[2021-03-18] MEDS: Magnesium Oxide 400 MG TAB PO SCH (09:25)
[2021-03-18] MEDS: Potassium Chloride 20 MEQ TAB PO SCH (09:26)
[2021-03-18] MEDS: Folic Acid 1 MG TAB PO SCH (09:26)
[2021-03-18] MEDS: hydrALAZINE 25 MG TAB PO SCH ×3 (09:26→21:15)
[2021-03-18] MEDS: Multivitamin W/ Minerals 1 TAB PO SCH (09:26)
[2021-03-18] MEDS: Lisinopril 20 MG TAB PO SCH ×2 (09:27→21:15)
[2021-03-18] MEDS: Metoprolol Tartrate 25 MG TAB PO SCH ×2 (09:27→21:16)
[2021-03-18] MEDS: Thiamine 100 MG TAB PO SCH (09:28)
[2021-03-18] MEDS: Atorvastatin Calcium 10 MG TAB PO SCH (21:15)
[2021-03-19 05:15] LABS: Anion Gap 12 mmol/L (10-20); BUN (Urea Nitrogen) 8 mg/dL (8.4-25.7); Calc. Creatinine Clearance 110 mL/min (70-130); Calcium 8.4 mg/dL (7.8-10.44); Carbon Dioxide 21 mmol/L (23-31); Chloride 98 mmol/L (98-107); Glucose 105 mg/dL (83-110); Magnesium 1.4 mg/dL (1.6-2.6); Potassium 3.7 mmol/L (3.5-5.1); Sodium 127 mmol/L (136-145)
[2021-03-19] MEDS: CEFAZOLIN 2 GM in Premix Bag 1 BAG IVPB SCH ×3 (05:20→21:44)
[2021-03-19] MEDS: Magnesium 2 GM/50 ML 2 GM in Premix Bag 1 BAG IVPB SCH ×2 (06:14→07:33)
[2021-03-19] MEDS: Metoprolol Tartrate 25 MG TAB PO SCH ×2 (09:37→20:32)
[2021-03-19] MEDS: Thiamine 100 MG TAB PO SCH (09:37)
[2021-03-19] MEDS: Folic Acid 1 MG TAB PO SCH (09:37)
[2021-03-19] MEDS: Lisinopril 20 MG TAB PO SCH ×2 (09:38→20:33)
[2021-03-19] MEDS: hydrALAZINE 25 MG TAB PO SCH ×3 (09:38→20:34)
[2021-03-19] MEDS: Multivitamin W/ Minerals 1 TAB PO SCH (09:38)
[2021-03-19] MEDS: Acetaminophen 325 MG TAB PO PRN ×2 (14:13→19:54)
[2021-03-19 15:14] VITALS: BMI 23.3
[2021-03-19] MEDS: Atorvastatin Calcium 10 MG TAB PO SCH (20:35)
[2021-03-20 04:40] LABS: Anion Gap 12 mmol/L (10-20); BUN (Urea Nitrogen) 8 mg/dL (8.4-25.7); Calc. Creatinine Clearance 107 mL/min (70-130); Calcium 8.1 mg/dL (7.8-10.44); Carbon Dioxide 21 mmol/L (23-31); Chloride 96 mmol/L (98-107); Glucose 105 mg/dL (83-110); Magnesium 1.8 mg/dL (1.6-2.6); Potassium 3.5 mmol/L (3.5-5.1); Sodium 125 mmol/L (136-145)
[2021-03-20] MEDS: Acetaminophen 325 MG TAB PO PRN ×3 (05:24→20:33)
[2021-03-20] MEDS: CEFAZOLIN 2 GM in Premix Bag 1 BAG IVPB SCH ×3 (05:24→22:35)
[2021-03-20] MEDS: hydrALAZINE 25 MG TAB PO SCH ×3 (09:10→20:35)
[2021-03-20] MEDS: Metoprolol Tartrate 25 MG TAB PO SCH ×2 (09:10→20:36)
[2021-03-20] MEDS: Multivitamin W/ Minerals 1 TAB PO SCH (09:10)
[2021-03-20] MEDS: Folic Acid 1 MG TAB PO SCH (09:10)
[2021-03-20] MEDS: Lisinopril 20 MG TAB PO SCH ×2 (09:10→20:36)
[2021-03-20] MEDS: Thiamine 100 MG TAB PO SCH (09:12)
[2021-03-20] MEDS: Atorvastatin Calcium 10 MG TAB PO SCH (20:34)
[2021-03-21] MEDS: Acetaminophen 325 MG TAB PO PRN ×5 (00:27→23:55)
[2021-03-21] MEDS: CEFAZOLIN 2 GM in Premix Bag 1 BAG IVPB SCH ×3 (05:29→21:49)
[2021-03-21 08:02] LABS: Hemoglobin 7.5 g/dL (14.0-18.0); Mean Corpuscular Hemoglobin 30.1 pg (27.0-31.0); Mean Corpuscular Volume 91.3 fL (78.0-98.0); Mean Platelet Volume 7.5 fL (7.4-10.4); Platelet Count 310 thou/uL (130-400); RBC Distribution Width 14.5 % (11.5-14.5); White Blood Cell (WBC) Count 8.8 thou/uL (4.8-10.8)
[2021-03-21 08:22] LABS: Albumin 2.7 g/dL (3.4-4.8); Anion Gap 12 mmol/L (10-20); BUN (Urea Nitrogen) 6 mg/dL (8.4-25.7); BUN/Creatinine Ratio 8.82; Calc. Creatinine Clearance 113 mL/min (70-130); Calcium 8.3 mg/dL (7.8-10.44); Carbon Dioxide 21 mmol/L (23-31); Chloride 95 mmol/L (98-107); Glucose 99 mg/dL (83-110); Phosphorus 3.1 mg/dL (2.3-4.7); Potassium 3.1 mmol/L (3.5-5.1); Sodium 125 mmol/L (136-145)
[2021-03-21] MEDS: Thiamine 100 MG TAB PO SCH (08:50)
[2021-03-21] MEDS: Multivitamin W/ Minerals 1 TAB PO SCH (08:50)
[2021-03-21] MEDS: Folic Acid 1 MG TAB PO SCH (08:51)
[2021-03-21] MEDS: Lisinopril 20 MG TAB PO SCH ×2 (08:51→21:50)
[2021-03-21] MEDS: Metoprolol Tartrate 25 MG TAB PO SCH ×2 (08:51→21:50)
[2021-03-21] MEDS: hydrALAZINE 25 MG TAB PO SCH ×3 (08:51→21:49)
[2021-03-21] MEDS ORDERED: Potassium Chloride 20 MEQ TAB PO SCH (09:00)
[2021-03-21 09:26] LABS: Magnesium 1.4 mg/dL (1.6-2.6)
[2021-03-21] MEDS ORDERED: Magnesium Sulfate 4 GM in Sodium Chloride 0.9% 250 ML 250 ML IVPB SCH (10:00)
[2021-03-21] MEDS: Potassium Chloride 20 MEQ TAB PO SCH (18:31)
[2021-03-21] MEDS: Atorvastatin Calcium 10 MG TAB PO SCH (21:50)
[2021-03-21] MEDS: Apixaban 5 MG TAB PO SCH (21:51)
[2021-03-22 04:05] LABS: Albumin 2.8 g/dL (3.4-4.8); Anion Gap 12 mmol/L (10-20); BUN (Urea Nitrogen) 7 mg/dL (8.4-25.7); BUN/Creatinine Ratio 10.29; Calc. Creatinine Clearance 113 mL/min (70-130); Calcium 8.2 mg/dL (7.8-10.44); Carbon Dioxide 20 mmol/L (23-31); Chloride 97 mmol/L (98-107); Glucose 114 mg/dL (83-110); Phosphorus 2.9 mg/dL (2.3-4.7); Potassium 3.6 mmol/L (3.5-5.1); Sodium 125 mmol/L (136-145)
[2021-03-22] MEDS: Acetaminophen 325 MG TAB PO PRN ×2 (04:51→11:19)
[2021-03-22] MEDS: CEFAZOLIN 2 GM in Premix Bag 1 BAG IVPB SCH ×2 (05:56→16:00)
[2021-03-22 08:05] VITALS: BP 182/79; TEMP 98.8
[2021-03-22] MEDS: Potassium Chloride 20 MEQ TAB PO SCH (08:58)
[2021-03-22] MEDS: Thiamine 100 MG TAB PO SCH (08:59)
[2021-03-22] MEDS: Folic Acid 1 MG TAB PO SCH (08:59)
[2021-03-22] MEDS: Lisinopril 20 MG TAB PO SCH (08:59)
[2021-03-22] MEDS: Multivitamin W/ Minerals 1 TAB PO SCH (08:59)
[2021-03-22] MEDS: Apixaban 5 MG TAB PO SCH (08:59)
[2021-03-22] MEDS ORDERED: Sodium Bicarbonate Tab 325 MG TAB PO SCH (09:00)
[2021-03-22] MEDS: Metoprolol Tartrate 25 MG TAB PO SCH (09:00)
[2021-03-22] MEDS ORDERED: Megestrol Acetate 800 MG/20 ML UDCUP PO SCH (09:00)
[2021-03-22] MEDS: hydrALAZINE 25 MG TAB PO SCH ×2 (09:00→16:00)
== END 2021-03-22 16:03 | DRG 871 ==
LOC: ERS 21:10 → 2SE 23:30 → 2NO 03-08 20:43 → ONC 03-16 00:54
PROVIDERS: ADMIT Student in an Organized Health Care Education/Training Program; ATTEND Internal Medicine
PROC: 0DB78ZX Excision of Stomach, Pylorus, Via Natural or Artificial Opening Endoscopic, Diagnostic (ICD-10-PCS; 2021-03-05)
PROC: 30233N1 Transfusion of Nonautologous Red Blood Cells into Peripheral Vein, Percutaneous Approach (ICD-10-PCS; 2021-03-05)
PROC: B24BZZ4 Ultrasonography of Heart with Aorta, Transesophageal (ICD-10-PCS; 2021-03-08)
PROC: 02HV33Z Insertion of Infusion Device into Superior Vena Cava, Percutaneous Approach (ICD-10-PCS; principal; 2021-03-12)
PROC: B548ZZA Ultrasonography of Superior Vena Cava, Guidance (ICD-10-PCS; 2021-03-12)
DX: A41.01 Sepsis due to Methicillin susceptible Staphylococcus aureus (principal); G93.41 Metabolic encephalopathy; K25.4 Chronic or unspecified gastric ulcer with hemorrhage; J69.0 Pneumonitis due to inhalation of food and vomit; F10.239 Alcohol dependence with withdrawal, unspecified; D62 Acute posthemorrhagic anemia; E22.2 Syndrome of inappropriate secretion of antidiuretic hormone; I47.1 Supraventricular tachycardia; I10 Essential (primary) hypertension; E78.5 Hyperlipidemia, unspecified; E87.6 Hypokalemia; R79.89 Other specified abnormal findings of blood chemistry; E83.42 Hypomagnesemia; I25.10 Atherosclerotic heart disease of native coronary artery without angina pectoris; K44.9 Diaphragmatic hernia without obstruction or gangrene; I08.3 Combined rheumatic disorders of mitral, aortic and tricuspid valves; T39.395A Adverse effect of other nonsteroidal anti-inflammatory drugs [NSAID], initial encounter; Z79.899 Other long term (current) drug therapy; Z20.822 Contact with and (suspected) exposure to COVID-19
CPT/HCPCS: 36415; 36430; 36569; 70450; 71045; 74177; 80048; 80053; 80069; 80307; 81001; 82140; 82274; 82436; 82728; 83540; 83550; 83605; 83735; 83880; 83930; 83935; 84100; 84133; 84295; 84300; 84484; 84540; 84560; 85025; 85027; 85610; 85730; 86850; 86900; 86901; 87040; 87077; 87149; 87186; 88305; 88312; 93005; 93010; 93306; 93312; 96374; 96375; C1751; C9113; J0360; J0690; J1644; J2060; J2543; J2704; J3010; J3370; J3411; J3475; J3480; J3490; J7050; P9016; Q9967; U0002; U0005

== ENCOUNTER 2021-04-15 08:58 | Emergency (ER) | payer MEDICARE ==
[2021-04-15] MEDS ORDERED: Ketorolac Tromethamine 30 MG/ML VIAL ONE (11:23)
[2021-04-15 12:05] LABS: Bacteria/HPF None Seen HPF (None Seen); Bilirubin Negative (Negative); Blood, Urine Negative (Negative); Clarity Clear (Clear); Glucose, Urine (Dipstick) Normal (Negative); Ketone, Urine Negative (Negative); Leukocyte Negative Leu/uL (Negative); Nitrite Negative (Negative); Protein, Urine (Dipstick) 50 mg/dL (Neg-Trace); RBC/HPF 0-3 HPF (0-3); Specific Gravity, Urine 1.026 (1.002-1.036); Squamous Epithelial None Seen HPF (0-3); Urobilinogen Normal mg/dL (Less than 2); WBC/HPF 0-3 HPF (0-3)
== END 2021-04-15 13:15 | disposition home or self-care (01) ==
LOC: ERS 08:58
DX: M54.5 Low back pain (principal); I10 Essential (primary) hypertension; E78.5 Hyperlipidemia, unspecified
CPT/HCPCS: 81003; 81015; J1885

== ENCOUNTER 2021-04-18 16:48 | Inpatient (IN) | payer MEDICARE ==
[2021-04-18 18:57] LABS: Hemoglobin 8.7 g/dL (14.0-18.0); Mean Corpuscular HGB CONC 32.5 g/dL (32.0-36.0); Mean Corpuscular Hemoglobin 28.3 pg (27.0-31.0); Mean Corpuscular Volume 87.3 fL (78.0-98.0); Mean Platelet Volume 7.6 fL (7.4-10.4); Platelet Count 267 thou/uL (130-400); RBC Distribution Width 14.9 % (11.5-14.5); Red Blood Cell (RBC) Count 3.08 mill/uL (4.70-6.10)
[2021-04-18 19:16] LABS: ALT (SGPT) 18 U/L (8-55); AST (SGOT) 25 U/L (5-34); Albumin 3.1 g/dL (3.4-4.8); Alkaline Phosphatase 116 U/L (40-110); Anion Gap 12 mmol/L (10-20); BUN (Urea Nitrogen) 14 mg/dL (8.4-25.7); Bilirubin, Total 0.5 mg/dL (0.2-1.2); Calc. Creatinine Clearance 0 mL/min (70-130); Calcium 8.4 mg/dL (7.8-10.44); Carbon Dioxide 23 mmol/L (23-31); Chloride 92 mmol/L (98-107); Globulin 2.4 g/dL (2.4-3.5); Glucose 133 mg/dL (83-110); Protein, Total 5.5 g/dL (5.8-8.1); Sodium 124 mmol/L (136-145)
[2021-04-18 19:20] LABS: Band 46 % (5-11); Lymphocytes 5 % (21-51); MDiff Complete? YES; Monocytes 2 % (0-10); Neutrophil 47 % (42-75); Platelet Morphology Comment Appears Adequate; RBC Morphology Normal
[2021-04-18 19:25] LABS: Potassium 2.9 mmol/L (3.5-5.1)
[2021-04-18] MEDS ORDERED: Morphine 4 MG/ML VIAL ONE (19:52)
[2021-04-18] MEDS ORDERED: Potassium Chloride 20 MEQ TAB ONE (19:52)
[2021-04-18 21:06] LABS: Alcohol Less than 10 mg/dL (Less than 10)
[2021-04-18 21:24] LABS: CRP (Inflammatory) 30.51 mg/dL (= or < 0.5)
[2021-04-18] MEDS ORDERED: Cefepime 2 GM VIAL ONE (22:04)
[2021-04-19] MEDS ORDERED: Vancomycin 1 GM/200 ML BAG ONE (00:16)
[2021-04-19] MEDS ORDERED: Electrolyte Replacement Protocol 1 EACH FS SCH (01:15)
[2021-04-19 01:43] LABS: Anion Gap 14 mmol/L (10-20); BUN (Urea Nitrogen) 13 mg/dL (8.4-25.7); Calc. Creatinine Clearance 0 mL/min (70-130); Calcium 8.3 mg/dL (7.8-10.44); Carbon Dioxide 21 mmol/L (23-31); Chloride 95 mmol/L (98-107); Glucose 136 mg/dL (83-110); Potassium 3.2 mmol/L (3.5-5.1); Sodium 127 mmol/L (136-145)
[2021-04-19] MEDS ORDERED: Ketorolac Tromethamine 30 MG/ML VIAL IVP PRN (02:58)
[2021-04-19] MEDS ORDERED: Ondansetron ODT 4 MG TAB PO PRN (03:41)
[2021-04-19] MEDS ORDERED: Acetaminophen 650 MG Suppository PR PRN (03:41)
[2021-04-19] MEDS ORDERED: Ondansetron PF 4 MG/2 ML Vial IVP PRN (03:41)
[2021-04-19 03:49] LABS: Bacteria/HPF 1+ HPF (None Seen); Bilirubin Negative (Negative); Blood, Urine Negative (Negative); Clarity Clear (Clear); Glucose, Urine (Dipstick) Normal (Negative); Ketone, Urine Negative (Negative); Leukocyte Negative Leu/uL (Negative); Nitrite Negative (Negative); Protein, Urine (Dipstick) 70 mg/dL (Neg-Trace); RBC/HPF None Seen HPF (0-3); Specific Gravity, Urine 1.027 (1.002-1.036); Squamous Epithelial None Seen HPF (0-3); Urobilinogen Normal mg/dL (Less than 2)
[2021-04-19] MEDS ORDERED: Ketorolac Tromethamine 30 MG/ML VIAL ONE (03:54)
[2021-04-19] MEDS ORDERED: Potassium Chloride 20 MEQ TAB PO SCH (04:00)
[2021-04-19 04:15] LABS: SARS-CoV-2 NAA Rapid Test Not Detected (NotDetected)
[2021-04-19] MEDS ORDERED: Potassium Chloride 20 MEQ TAB ONE (05:13)
[2021-04-19] MEDS: Sodium Chloride 0.9% 1,000 ML IV SCH ×2 (05:28→16:40)
[2021-04-19] MEDS ORDERED: Sodium Chloride 0.9% (PF) 10 ML VIAL FS PRN (05:45)
[2021-04-19 06:45] LABS: Magnesium 1.5 mg/dL (1.6-2.6)
[2021-04-19] MEDS ORDERED: Magnesium 2 GM/50 ML 2 GM in Premix Bag 1 BAG IVPB SCH (07:30)
[2021-04-19] MEDS ORDERED: Magnesium 2 GM/50 ML BAG (IN WATER) ONE (08:49)
[2021-04-19] MEDS ORDERED: Vancomycin 1.5 GRAM/300 ML BAG 1.5 GM in Premix Bag 1 BAG IVPB SCH (09:00)
[2021-04-19] MEDS ORDERED: Cefepime 2 GM VIAL ONE (12:18)
[2021-04-19] MEDS: Cefepime 2 GM in Sodium Chloride 0.9% 100 ML IVPB SCH ×2 (12:24→22:59)
[2021-04-19] MEDS ORDERED: Enoxaparin Sodium 40 MG/0.4 ML SYRINGE ONE (12:32)
[2021-04-19] MEDS ORDERED: Pantoprazole 40 MG VIAL ONE (12:33)
[2021-04-19] MEDS: Pantoprazole 40 MG VIAL IVP SCH (12:40)
[2021-04-19] MEDS: Enoxaparin Sodium 40 MG/0.4 ML SYRINGE SC SCH (12:40)
[2021-04-19] MEDS: Morphine 2 MG/ML VIAL SLOW IVP PRN ×2 (12:41→17:38)
[2021-04-19] MEDS ORDERED: Morphine 2 MG/ML VIAL ONE (12:42)
[2021-04-19] MEDS: Vancomycin 1.5 GRAM/300 ML BAG 1.5 GM in Premix Bag 1 BAG IVPB SCH (15:10)
[2021-04-19] MEDS: Melatonin 3 MG TAB PO SCH (20:00)
[2021-04-19] MEDS: Lisinopril 20 MG TAB PO SCH (20:02)
[2021-04-19] MEDS: Metoprolol Tartrate 25 MG TAB PO SCH (20:03)
[2021-04-19] MEDS: Atorvastatin Calcium 10 MG TAB PO SCH (20:03)
[2021-04-19] MEDS: hydrALAZINE 10 MG TAB PO SCH (20:04)
[2021-04-20] MEDS: Sodium Chloride 0.9% 1,000 ML IV SCH ×2 (02:30→18:29)
[2021-04-20] MEDS: Vancomycin 1.5 GRAM/300 ML BAG 1.5 GM in Premix Bag 1 BAG IVPB SCH ×2 (02:31→19:14)
[2021-04-20 07:05] LABS: Anion Gap 14 mmol/L (10-20); BUN (Urea Nitrogen) 12 mg/dL (8.4-25.7); Calc. Creatinine Clearance 126 mL/min (70-130); Calcium 8.3 mg/dL (7.8-10.44); Carbon Dioxide 19 mmol/L (23-31); Chloride 100 mmol/L (98-107); Glucose 101 mg/dL (83-110); Potassium 3.4 mmol/L (3.5-5.1); Sodium 130 mmol/L (136-145)
[2021-04-20] MEDS ORDERED: Potassium Chloride 20 MEQ TAB PO SCH (07:30)
[2021-04-20 07:45] LABS: Band 17 % (5-11); Hemoglobin 8.4 g/dL (14.0-18.0); Lymphocytes 6 % (21-51); MDiff Complete? YES; Mean Corpuscular HGB CONC 32.6 g/dL (32.0-36.0); Mean Corpuscular Hemoglobin 28.4 pg (27.0-31.0); Mean Corpuscular Volume 87.2 fL (78.0-98.0); Mean Platelet Volume 8.1 fL (7.4-10.4); Monocytes 8 % (0-10); Neutrophil 68 % (42-75); Platelet Count 271 thou/uL (130-400); Platelet Morphology Comment Appears Adequate; RBC Distribution Width 15.3 % (11.5-14.5); RBC Morphology Normal; Red Blood Cell (RBC) Count 2.95 mill/uL (4.70-6.10); White Blood Cell (WBC) Count 16.1 thou/uL (4.8-10.8)
[2021-04-20] MEDS ORDERED: Magnesium Sulfate 4 GM in Sodium Chloride 0.9% 250 ML 250 ML IVPB SCH (08:00)
[2021-04-20] MEDS: Pantoprazole 40 MG VIAL IVP SCH (09:35)
[2021-04-20] MEDS: Thiamine 100 MG TAB PO SCH (09:39)
[2021-04-20] MEDS: Metoprolol Tartrate 25 MG TAB PO SCH ×2 (09:39→20:36)
[2021-04-20] MEDS: Folic Acid 1 MG TAB PO SCH (09:39)
[2021-04-20] MEDS: Lisinopril 20 MG TAB PO SCH ×2 (09:39→20:35)
[2021-04-20] MEDS: hydrALAZINE 10 MG TAB PO SCH ×3 (09:39→20:35)
[2021-04-20] MEDS: Multivitamin W/ Minerals 1 TAB PO SCH (09:39)
[2021-04-20] MEDS: Enoxaparin Sodium 40 MG/0.4 ML SYRINGE SC SCH (09:40)
[2021-04-20] MEDS: Cefepime 2 GM in Sodium Chloride 0.9% 100 ML IVPB SCH ×2 (19:13→23:23)
[2021-04-20] MEDS: Atorvastatin Calcium 10 MG TAB PO SCH (20:34)
[2021-04-20] MEDS: Melatonin 3 MG TAB PO SCH (20:34)
[2021-04-20] MEDS: Acetaminophen 325 MG TAB PO PRN (20:57)
[2021-04-21] MEDS: Vancomycin 1.5 GRAM/300 ML BAG 1.5 GM in Premix Bag 1 BAG IVPB SCH ×3 (00:05→14:06)
[2021-04-21] MEDS ORDERED: Lidocaine 1% (PF) 30 ML VIAL ONE ×2 (09:16→13:10)
[2021-04-21] MEDS ORDERED: Bupivacaine 0.25% HCL 30 ML VIAL ONE (09:16)
[2021-04-21] MEDS ORDERED: EPINEPHrine 1 MG/ML AMP ONE (09:16)
[2021-04-21] MEDS ORDERED: Lidocaine 1% w/Epinephrine 1:100K 20 ML VIAL ONE (09:16)
[2021-04-21] MEDS ORDERED: Neomycin-Polymyxin 1 ML AMP ONE (09:16)
[2021-04-21] MEDS ORDERED: Propofol 500 MG/50 ML VIAL ONE (09:18)
[2021-04-21] MEDS ORDERED: Fentanyl 100 MCG/2 ML VIAL ONE (09:18)
[2021-04-21] MEDS ORDERED: Clindamycin/D5W 900 mg/50 ml Premix Bag ONE (09:18)
[2021-04-21] MEDS ORDERED: PROPOFOL 200 MG/20 ML VIAL ONE (09:42)
[2021-04-21] MEDS ORDERED: Ondansetron PF 4 MG/2 ML Vial ONE (09:42)
[2021-04-21] MEDS ORDERED: Lidocaine 1% PF 5 ML VIAL ONE (09:42)
[2021-04-21] MEDS ORDERED: PHENYLEPHRINE-NS 100 MCG/ML 10 ML SYRINGE ONE (09:42)
[2021-04-21] MEDS ORDERED: Promethazine HCl 25 MG/ML VIAL IVPB PRN (10:47)
[2021-04-21] MEDS ORDERED: Ondansetron HCl/PF 4 MG/2 ML Vial IVP PRN (10:47)
[2021-04-21] MEDS ORDERED: Promethazine HCl 25 MG/ML VIAL IM PRN (10:47)
[2021-04-21] MEDS ORDERED: Labetalol HCl 100 MG/20 ML VIAL ONE (11:00)
[2021-04-21] MEDS: hydrALAZINE 10 MG TAB PO SCH ×3 (11:36→20:29)
[2021-04-21] MEDS: Cefepime 2 GM in Sodium Chloride 0.9% 100 ML IVPB SCH (11:51)
[2021-04-21] MEDS: Metoprolol Tartrate 25 MG TAB PO SCH ×2 (11:53→20:30)
[2021-04-21] MEDS: Lisinopril 20 MG TAB PO SCH ×2 (11:53→20:31)
[2021-04-21] MEDS: Folic Acid 1 MG TAB PO SCH (12:23)
[2021-04-21] MEDS: Enoxaparin Sodium 40 MG/0.4 ML SYRINGE SC SCH (12:23)
[2021-04-21] MEDS: Thiamine 100 MG TAB PO SCH (12:24)
[2021-04-21] MEDS: Multivitamin W/ Minerals 1 TAB PO SCH (12:24)
[2021-04-21] MEDS: Pantoprazole 40 MG VIAL IVP SCH (13:11)
[2021-04-21] MEDS: Acetaminophen 325 MG TAB PO PRN (14:06)
[2021-04-21] MEDS: Morphine 2 MG/ML VIAL SLOW IVP PRN (15:37)
[2021-04-21 18:27] LABS: Hemoglobin 7.7 g/dL (14.0-18.0); Mean Corpuscular HGB CONC 32.2 g/dL (32.0-36.0); Mean Corpuscular Volume 86.9 fL (78.0-98.0); Mean Platelet Volume 8.5 fL (7.4-10.4); Platelet Count 270 thou/uL (130-400); RBC Distribution Width 15.4 % (11.5-14.5); Red Blood Cell (RBC) Count 2.74 mill/uL (4.70-6.10); White Blood Cell (WBC) Count 21.9 thou/uL (4.8-10.8)
[2021-04-21 18:44] LABS: ALT (SGPT) 18 U/L (8-55); AST (SGOT) 22 U/L (5-34); Albumin 2.3 g/dL (3.4-4.8); Alkaline Phosphatase 109 U/L (40-110); Anion Gap 13 mmol/L (10-20); Anisocytosis SLIGHT = 6-15 cells (100X) (0-5/hpf); BUN (Urea Nitrogen) 13 mg/dL (8.4-25.7); Band 20 % (5-11); Bilirubin, Total 0.9 mg/dL (0.2-1.2); CRP (Inflammatory) 14.05 mg/dL (= or < 0.5); Calc. Creatinine Clearance 128 mL/min (70-130); Calcium 7.7 mg/dL (7.8-10.44); Carbon Dioxide 20 mmol/L (23-31); Chloride 98 mmol/L (98-107); Glucose 118 mg/dL (83-110); Lymphocytes 3 % (21-51); MDiff Complete? YES; Monocytes 2 % (0-10); Neutrophil 75 % (42-75); Platelet Morphology Comment Appears Adequate; Polychromasia SLIGHT = 2-3 cells (100X) (0-2/hpf); Potassium 3.4 mmol/L (3.5-5.1); Protein, Total 4.3 g/dL (5.8-8.1); Sodium 128 mmol/L (136-145)
[2021-04-21] MEDS: Melatonin 3 MG TAB PO SCH (20:30)
[2021-04-21] MEDS: Atorvastatin Calcium 10 MG TAB PO SCH (20:30)
[2021-04-21] MEDS ORDERED: Potassium Chloride 20 MEQ TAB PO SCH (22:45)
[2021-04-22] MEDS: Cefepime 2 GM in Sodium Chloride 0.9% 100 ML IVPB SCH ×2 (00:09→10:18)
[2021-04-22] MEDS: Acetaminophen 325 MG TAB PO PRN ×2 (00:35→14:23)
[2021-04-22] MEDS: Vancomycin 1.5 GRAM/300 ML BAG 1.5 GM in Premix Bag 1 BAG IVPB SCH ×2 (01:04→12:16)
[2021-04-22] MEDS ORDERED: Sodium Chloride 0.9% 1,000 ML IV SCH (07:15)
[2021-04-22] MEDS: Folic Acid 1 MG TAB PO SCH (07:58)
[2021-04-22] MEDS: hydrALAZINE 10 MG TAB PO SCH ×3 (07:58→22:19)
[2021-04-22] MEDS: Lisinopril 20 MG TAB PO SCH ×2 (07:58→22:19)
[2021-04-22] MEDS: Thiamine 100 MG TAB PO SCH (07:58)
[2021-04-22] MEDS: Metoprolol Tartrate 25 MG TAB PO SCH ×2 (07:59→22:18)
[2021-04-22 08:52] LABS: Anion Gap 13 mmol/L (10-20); BUN (Urea Nitrogen) 12 mg/dL (8.4-25.7); Calc. Creatinine Clearance 128 mL/min (70-130); Calcium 7.8 mg/dL (7.8-10.44); Carbon Dioxide 22 mmol/L (23-31); Chloride 98 mmol/L (98-107); Glucose 112 mg/dL (83-110); Potassium 3.7 mmol/L (3.5-5.1); Sodium 129 mmol/L (136-145)
[2021-04-22 09:02] LABS: Mean Corpuscular HGB CONC 31.9 g/dL (32.0-36.0); Mean Corpuscular Hemoglobin 27.7 pg (27.0-31.0); Mean Corpuscular Volume 86.8 fL (78.0-98.0); Mean Platelet Volume 8.5 fL (7.4-10.4); Platelet Count 274 thou/uL (130-400); RBC Distribution Width 15.6 % (11.5-14.5); Red Blood Cell (RBC) Count 2.51 mill/uL (4.70-6.10); White Blood Cell (WBC) Count 20.3 thou/uL (4.8-10.8)
[2021-04-22] MEDS: Enoxaparin Sodium 40 MG/0.4 ML SYRINGE SC SCH (10:17)
[2021-04-22 11:34] LABS: Anisocytosis SLIGHT = 6-15 cells (100X) (0-5/hpf); Band 11 % (5-11); Eosinophils 1 % (0-10); Hypersemented Neutrophil SLIGHT; Lymphocytes 2 % (21-51); MDiff Complete? YES; Monocytes 5 % (0-10); Neutrophil 81 % (42-75); Platelet Morphology Comment Appears Adequate; Polychromasia SLIGHT = 2-3 cells (100X) (0-2/hpf)
[2021-04-22] MEDS: Multivitamin W/ Minerals 1 TAB PO SCH (12:12)
[2021-04-22] MEDS ORDERED: Vancomycin 1.5 GRAM/300 ML BAG 1.5 GM in Premix Bag 1 BAG IVPB SCH (13:14)
[2021-04-22] MEDS ORDERED: VANCOMYCIN 1.25 GM/250 ML BAG 1.25 GM in Premix Bag 1 BAG IVPB SCH ×2 (14:00→21:00)
[2021-04-22] MEDS ORDERED: hydrOXYzine 25 MG TAB PO SCH (21:45)
[2021-04-22] MEDS: Atorvastatin Calcium 10 MG TAB PO SCH (22:19)
[2021-04-22] MEDS: Melatonin 3 MG TAB PO SCH (22:19)
[2021-04-23] MEDS: Cefepime 2 GM in Sodium Chloride 0.9% 100 ML IVPB SCH ×2 (00:19→11:50)
[2021-04-23 06:32] LABS: Band 13 % (5-11); Hemoglobin 7.8 g/dL (14.0-18.0); Hypochromia SLIGHT = 6-15 cells (100X) (0-5/hpf); Lymphocytes 11 % (21-51); MDiff Complete? YES; Mean Corpuscular HGB CONC 31.2 g/dL (32.0-36.0); Mean Corpuscular Volume 86.6 fL (78.0-98.0); Mean Platelet Volume 8.6 fL (7.4-10.4); Monocytes 5 % (0-10); Neutrophil 71 % (42-75); Platelet Count 325 thou/uL (130-400); Platelet Morphology Comment Appears Adequate; RBC Distribution Width 15.8 % (11.5-14.5); Red Blood Cell (RBC) Count 2.87 mill/uL (4.70-6.10); White Blood Cell (WBC) Count 26.2 thou/uL (4.8-10.8)
[2021-04-23 06:40] LABS: Anion Gap 14 mmol/L (10-20); BUN (Urea Nitrogen) 9 mg/dL (8.4-25.7); Calc. Creatinine Clearance 130 mL/min (70-130); Calcium 8.1 mg/dL (7.8-10.44); Carbon Dioxide 22 mmol/L (23-31); Chloride 96 mmol/L (98-107); Glucose 103 mg/dL (83-110); Potassium 3.3 mmol/L (3.5-5.1); Sodium 129 mmol/L (136-145)
[2021-04-23] MEDS ORDERED: Potassium Chloride 20 MEQ TAB PO SCH (07:00)
[2021-04-23] MEDS ORDERED: Vancomycin HCl 1.25 GM in Sodium Chloride 0.9% 250 ML 250 ML IVPB SCH (09:00)
[2021-04-23] MEDS: Metoprolol Tartrate 25 MG TAB PO SCH ×2 (09:57→22:08)
[2021-04-23] MEDS: Thiamine 100 MG TAB PO SCH (09:57)
[2021-04-23] MEDS: Multivitamin W/ Minerals 1 TAB PO SCH (09:57)
[2021-04-23] MEDS: Folic Acid 1 MG TAB PO SCH (09:57)
[2021-04-23] MEDS: hydrALAZINE 10 MG TAB PO SCH ×3 (09:58→22:12)
[2021-04-23] MEDS: Lisinopril 20 MG TAB PO SCH ×2 (09:58→22:07)
[2021-04-23] MEDS: Enoxaparin Sodium 40 MG/0.4 ML SYRINGE SC SCH (10:41)
[2021-04-23] MEDS: Acetaminophen 325 MG TAB PO PRN (11:57)
[2021-04-23] MEDS: CEFAZOLIN 2 GM in Premix Bag 1 BAG IVPB SCH ×2 (14:55→22:06)
[2021-04-23] MEDS: Melatonin 3 MG TAB PO SCH (22:08)
[2021-04-23] MEDS: Atorvastatin Calcium 10 MG TAB PO SCH (22:09)
[2021-04-24] MEDS: CEFAZOLIN 2 GM in Premix Bag 1 BAG IVPB SCH ×3 (05:47→20:53)
[2021-04-24 06:22] LABS: Hemoglobin 7.5 g/dL (14.0-18.0); Mean Corpuscular Hemoglobin 28.1 pg (27.0-31.0); Mean Platelet Volume 8.1 fL (7.4-10.4); Platelet Count 322 thou/uL (130-400); RBC Distribution Width 16.1 % (11.5-14.5); Red Blood Cell (RBC) Count 2.67 mill/uL (4.70-6.10); White Blood Cell (WBC) Count 20.1 thou/uL (4.8-10.8)
[2021-04-24 06:23] LABS: Band 16 % (5-11); Eosinophils 1 % (0-10); Lymphocytes 3 % (21-51); MDiff Complete? YES; Metamyelocyte 3 % (0-0); Monocytes 5 % (0-10); Neutrophil 72 % (42-75); Platelet Morphology Comment Appears Adequate
[2021-04-24 06:39] LABS: Anion Gap 14 mmol/L (10-20); BUN (Urea Nitrogen) 8 mg/dL (8.4-25.7); Calc. Creatinine Clearance 140 mL/min (70-130); Calcium 7.9 mg/dL (7.8-10.44); Carbon Dioxide 20 mmol/L (23-31); Chloride 98 mmol/L (98-107); Glucose 102 mg/dL (83-110); Potassium 3.3 mmol/L (3.5-5.1); Sodium 129 mmol/L (136-145)
[2021-04-24] MEDS ORDERED: Potassium Chloride 20 MEQ TAB PO SCH (07:00)
[2021-04-24] MEDS: Metoprolol Tartrate 25 MG TAB PO SCH ×2 (09:14→23:53)
[2021-04-24] MEDS: Enoxaparin Sodium 40 MG/0.4 ML SYRINGE SC SCH (09:15)
[2021-04-24] MEDS: hydrALAZINE 10 MG TAB PO SCH ×2 (09:15→15:16)
[2021-04-24] MEDS: Lisinopril 20 MG TAB PO SCH ×2 (09:15→23:53)
[2021-04-24] MEDS: Multivitamin W/ Minerals 1 TAB PO SCH (09:15)
[2021-04-24] MEDS: Thiamine 100 MG TAB PO SCH (09:15)
[2021-04-24] MEDS: Folic Acid 1 MG TAB PO SCH (09:18)
[2021-04-24] MEDS: Morphine 2 MG/ML VIAL SLOW IVP PRN ×2 (12:24→18:06)
[2021-04-24] MEDS: Melatonin 3 MG TAB PO SCH (22:34)
[2021-04-24] MEDS: hydrALAZINE 25 MG TAB PO SCH (23:52)
[2021-04-24] MEDS: Atorvastatin Calcium 10 MG TAB PO SCH (23:53)
[2021-04-25] MEDS: CEFAZOLIN 2 GM in Premix Bag 1 BAG IVPB SCH ×3 (05:07→20:42)
[2021-04-25 07:20] LABS: Hemoglobin 7.6 g/dL (14.0-18.0); Mean Corpuscular HGB CONC 31.8 g/dL (32.0-36.0); Mean Corpuscular Hemoglobin 27.4 pg (27.0-31.0); Mean Corpuscular Volume 86.3 fL (78.0-98.0); Mean Platelet Volume 8.5 fL (7.4-10.4); Platelet Count 376 thou/uL (130-400); RBC Distribution Width 16.2 % (11.5-14.5); Red Blood Cell (RBC) Count 2.75 mill/uL (4.70-6.10); White Blood Cell (WBC) Count 19.1 thou/uL (4.8-10.8)
[2021-04-25 07:26] LABS: Anion Gap 13 mmol/L (10-20); BUN (Urea Nitrogen) 8 mg/dL (8.4-25.7); Calc. Creatinine Clearance 0 mL/min (70-130); Calcium 7.5 mg/dL (7.8-10.44); Carbon Dioxide 24 mmol/L (23-31); Chloride 95 mmol/L (98-107); Glucose 88 mg/dL (83-110); Potassium 3.6 mmol/L (3.5-5.1); Sodium 128 mmol/L (136-145)
[2021-04-25 08:26] LABS: Band 15 % (5-11); Lymphocytes 2 % (21-51); MDiff Complete? YES; Metamyelocyte 3 % (0-0); Monocytes 5 % (0-10); Myelocyte 1 % (0-0); Neutrophil 74 % (42-75); Nucleated RBC 1 % (0); Platelet Morphology Comment Appears Adequate; Polychromasia SLIGHT = 2-3 cells (100X) (0-2/hpf)
[2021-04-25] MEDS: Metoprolol Tartrate 25 MG TAB PO SCH ×2 (08:44→20:41)
[2021-04-25] MEDS: Multivitamin W/ Minerals 1 TAB PO SCH (08:45)
[2021-04-25] MEDS: Enoxaparin Sodium 40 MG/0.4 ML SYRINGE SC SCH (08:45)
[2021-04-25] MEDS: Folic Acid 1 MG TAB PO SCH (08:45)
[2021-04-25] MEDS: Thiamine 100 MG TAB PO SCH (08:45)
[2021-04-25] MEDS: Hydrochlorothiazide 25 MG TAB PO SCH (11:44)
[2021-04-25] MEDS: Lisinopril 20 MG TAB PO SCH ×2 (11:44→20:39)
[2021-04-25] MEDS: hydrALAZINE 25 MG TAB PO SCH ×3 (11:44→20:41)
[2021-04-25 12:16] LABS: Fungus Stain Final report (.)
[2021-04-25 12:16] LABS: Fungus Stain Final report (.)
[2021-04-25 12:16] LABS: Fungus Stain Final report (.)
[2021-04-25] MEDS ORDERED: PROPOFOL 200 MG/20 ML VIAL ONE (13:00)
[2021-04-25] MEDS: Morphine 2 MG/ML VIAL SLOW IVP PRN (14:36)
[2021-04-25] MEDS ORDERED: Ketorolac Tromethamine 30 MG/ML VIAL IVP SCH (15:55)
[2021-04-25] MEDS: Melatonin 3 MG TAB PO SCH (20:39)
[2021-04-25] MEDS: Atorvastatin Calcium 10 MG TAB PO SCH (20:42)
[2021-04-26] MEDS: CEFAZOLIN 2 GM in Premix Bag 1 BAG IVPB SCH ×3 (06:47→21:26)
[2021-04-26 07:34] LABS: #Basophils 0.1 thou/uL (0.0-0.2); #Eosinphils 0.2 thou/uL (0.0-0.7); #Neutrophils 15.5 thou/uL (1.40-6.50); %Basophils 0.4 % (0.0-1.0); %Eosinophils 1.3 % (0.0-10.0); %Lymphocytes 5.4 % (21.0-51.0); %Monocytes 5.7 % (0.0-10.0); %Neutrophils 87.2 % (42.0-75.0); Hemoglobin 6.8 g/dL (14.0-18.0); Mean Corpuscular HGB CONC 30.7 g/dL (32.0-36.0); Mean Corpuscular Hemoglobin 26.4 pg (27.0-31.0); Mean Corpuscular Volume 86.1 fL (78.0-98.0); Mean Platelet Volume 8.4 fL (7.4-10.4); Platelet Count 440 thou/uL (130-400); RBC Distribution Width 16.7 % (11.5-14.5); Red Blood Cell (RBC) Count 2.56 mill/uL (4.70-6.10); White Blood Cell (WBC) Count 17.8 thou/uL (4.8-10.8)
[2021-04-26 07:38] LABS: Anion Gap 11 mmol/L (10-20); BUN (Urea Nitrogen) 9 mg/dL (8.4-25.7); Calc. Creatinine Clearance 125 mL/min (70-130); Calcium 7.9 mg/dL (7.8-10.44); Carbon Dioxide 27 mmol/L (23-31); Chloride 94 mmol/L (98-107); Glucose 100 mg/dL (83-110); Potassium 3.5 mmol/L (3.5-5.1); Sodium 128 mmol/L (136-145)
[2021-04-26] MEDS ORDERED: Potassium Chloride 20 MEQ TAB PO SCH (08:00)
[2021-04-26] MEDS ORDERED: Thrombin 5000 UNITS/5 ML VIAL ONE (09:43)
[2021-04-26] MEDS ORDERED: Ketamine 50 MG/ML (10ML VIAL) ONE (09:49)
[2021-04-26] MEDS ORDERED: Fentanyl 100 MCG/2 ML VIAL ONE ×2 (09:49→14:57)
[2021-04-26] MEDS ORDERED: Midazolam HCl 2 mg/2 ml Vial ONE (10:06)
[2021-04-26] MEDS ORDERED: Ondansetron PF 4 MG/2 ML Vial ONE (10:20)
[2021-04-26] MEDS ORDERED: Dexamethasone 20 MG/5 ML VIAL ONE (10:20)
[2021-04-26] MEDS ORDERED: PROPOFOL 200 MG/20 ML VIAL ONE (10:20)
[2021-04-26] MEDS ORDERED: Lidocaine 1% PF 5 ML VIAL ONE (10:20)
[2021-04-26] MEDS ORDERED: Rocuronium Bromide 10 MG/ML (10ML VIAL) ONE (10:20)
[2021-04-26] MEDS: Enoxaparin Sodium 40 MG/0.4 ML SYRINGE SC SCH (12:47)
[2021-04-26] MEDS: Metoprolol Tartrate 25 MG TAB PO SCH ×2 (12:48→21:17)
[2021-04-26] MEDS: Hydrochlorothiazide 25 MG TAB PO SCH (12:48)
[2021-04-26] MEDS: Folic Acid 1 MG TAB PO SCH (12:48)
[2021-04-26] MEDS: Multivitamin W/ Minerals 1 TAB PO SCH (12:48)
[2021-04-26] MEDS: Lisinopril 20 MG TAB PO SCH ×2 (12:48→21:25)
[2021-04-26] MEDS: hydrALAZINE 25 MG TAB PO SCH ×3 (12:48→21:24)
[2021-04-26] MEDS: Thiamine 100 MG TAB PO SCH (12:49)
[2021-04-26] MEDS ORDERED: SUGAMMADEX SODIUM 200 MG/2 ML VIAL ONE (12:59)
[2021-04-26] MEDS ORDERED: Morphine 2 MG/ML VIAL SLOW IVP PRN (13:58)
[2021-04-26] MEDS: Melatonin 3 MG TAB PO SCH (21:17)
[2021-04-26] MEDS: Atorvastatin Calcium 10 MG TAB PO SCH (21:25)
[2021-04-27] MEDS: CEFAZOLIN 2 GM in Premix Bag 1 BAG IVPB SCH ×2 (05:49→17:32)
[2021-04-27] MEDS: Sodium Chloride 0.9% 1,000 ML IV SCH ×2 (07:45→17:34)
[2021-04-27] MEDS: Thiamine 100 MG TAB PO SCH (09:00)
[2021-04-27] MEDS: Lisinopril 20 MG TAB PO SCH ×2 (09:00→20:27)
[2021-04-27] MEDS: Folic Acid 1 MG TAB PO SCH (09:00)
[2021-04-27] MEDS: Enoxaparin Sodium 40 MG/0.4 ML SYRINGE SC SCH (09:00)
[2021-04-27] MEDS: hydrALAZINE 25 MG TAB PO SCH ×3 (09:00→20:25)
[2021-04-27] MEDS: Hydrochlorothiazide 25 MG TAB PO SCH (09:00)
[2021-04-27] MEDS: Metoprolol Tartrate 25 MG TAB PO SCH ×2 (09:00→20:26)
[2021-04-27] MEDS: Multivitamin W/ Minerals 1 TAB PO SCH (09:00)
[2021-04-27 10:28] LABS: Anion Gap 15 mmol/L (10-20); BUN (Urea Nitrogen) 17 mg/dL (8.4-25.7); Calc. Creatinine Clearance 100 mL/min (70-130); Calcium 7.8 mg/dL (7.8-10.44); Carbon Dioxide 23 mmol/L (23-31); Chloride 97 mmol/L (98-107); Glucose 135 mg/dL (83-110); Potassium 4.1 mmol/L (3.5-5.1); Sodium 131 mmol/L (136-145)
[2021-04-27 12:14] LABS: #Eosinphils 0.1 thou/uL (0.0-0.7); #Lymphocytes 0.8 thou/uL (1.20-3.40); #Monocytes 0.9 thou/uL (0.11-0.59); #Neutrophils 13.4 thou/uL (1.40-6.50); %Basophils 0.1 % (0.0-1.0); %Eosinophils 0.4 % (0.0-10.0); %Monocytes 6.1 % (0.0-10.0); %Neutrophils 88.4 % (42.0-75.0); Hemoglobin 9.3 g/dL (14.0-18.0); Mean Corpuscular HGB CONC 32.6 g/dL (32.0-36.0); Mean Corpuscular Hemoglobin 28.7 pg (27.0-31.0); Mean Corpuscular Volume 87.9 fL (78.0-98.0); Mean Platelet Volume 8.6 fL (7.4-10.4); Platelet Count 482 thou/uL (130-400); RBC Distribution Width 16.4 % (11.5-14.5); Red Blood Cell (RBC) Count 3.23 mill/uL (4.70-6.10); White Blood Cell (WBC) Count 15.1 thou/uL (4.8-10.8)
[2021-04-27 12:33] LABS: Band 6 % (5-11); Lymphocytes 10 % (21-51); Monocytes 7 % (0-10); Neutrophil 76 % (42-75); Platelet Morphology Comment Appears Increased; Polychromasia MODERATE = 3-4 cells (100X) (0-2/hpf)
[2021-04-27] MEDS: ceFAZolin Sodium/D5W 2 GM in Premix Bag 1 BAG IVPB SCH (17:32)
[2021-04-27] MEDS: Melatonin 3 MG TAB PO SCH (20:26)
[2021-04-27] MEDS: Atorvastatin Calcium 10 MG TAB PO SCH (20:26)
[2021-04-27] MEDS: HYDROcodone/Acetaminophen 5/325 mg Tablet PO PRN (21:23)
[2021-04-27 23:54] LABS: SARS-CoV-2 PCR by NAA Not Detected (NotDetected)
[2021-04-28] MEDS: ceFAZolin Sodium/D5W 2 GM in Premix Bag 1 BAG IVPB SCH ×3 (02:10→18:38)
[2021-04-28 04:34] LABS: #Eosinphils 0.1 thou/uL (0.0-0.7); #Lymphocytes 1.3 thou/uL (1.20-3.40); #Monocytes 1.1 thou/uL (0.11-0.59); #Neutrophils 10.9 thou/uL (1.40-6.50); %Basophils 0.1 % (0.0-1.0); %Eosinophils 0.7 % (0.0-10.0); %Lymphocytes 9.9 % (21.0-51.0); %Monocytes 8.1 % (0.0-10.0); %Neutrophils 81.3 % (42.0-75.0); Hemoglobin 8.7 g/dL (14.0-18.0); Mean Corpuscular Hemoglobin 29.1 pg (27.0-31.0); Mean Corpuscular Volume 87.9 fL (78.0-98.0); Mean Platelet Volume 8.2 fL (7.4-10.4); Platelet Count 470 thou/uL (130-400); RBC Distribution Width 16.5 % (11.5-14.5); Red Blood Cell (RBC) Count 2.99 mill/uL (4.70-6.10); White Blood Cell (WBC) Count 13.4 thou/uL (4.8-10.8)
[2021-04-28] MEDS: Sodium Chloride 0.9% 1,000 ML IV SCH ×3 (04:39→21:01)
[2021-04-28 04:54] LABS: Anion Gap 12 mmol/L (10-20); BUN (Urea Nitrogen) 14 mg/dL (8.4-25.7); Calc. Creatinine Clearance 115 mL/min (70-130); Calcium 7.8 mg/dL (7.8-10.44); Carbon Dioxide 25 mmol/L (23-31); Chloride 97 mmol/L (98-107); Glucose 114 mg/dL (83-110); Potassium 3.6 mmol/L (3.5-5.1); Sodium 130 mmol/L (136-145)
[2021-04-28] MEDS: hydrALAZINE 25 MG TAB PO SCH ×3 (10:03→20:27)
[2021-04-28] MEDS: Acetaminophen/Codeine 30-300mg Tablet PO PRN ×2 (10:03→15:32)
[2021-04-28] MEDS: Thiamine 100 MG TAB PO SCH (10:05)
[2021-04-28] MEDS: Enoxaparin Sodium 40 MG/0.4 ML SYRINGE SC SCH (10:05)
[2021-04-28] MEDS: Multivitamin W/ Minerals 1 TAB PO SCH (10:05)
[2021-04-28] MEDS: Folic Acid 1 MG TAB PO SCH (10:05)
[2021-04-28] MEDS: Metoprolol Tartrate 25 MG TAB PO SCH ×2 (10:05→20:27)
[2021-04-28] MEDS: Hydrochlorothiazide 25 MG TAB PO SCH (10:06)
[2021-04-28] MEDS: Lisinopril 20 MG TAB PO SCH ×2 (10:06→20:26)
[2021-04-28] MEDS: Melatonin 3 MG TAB PO SCH (20:26)
[2021-04-28] MEDS: Atorvastatin Calcium 10 MG TAB PO SCH (20:26)
[2021-04-29] MEDS: ceFAZolin Sodium/D5W 2 GM in Premix Bag 1 BAG IVPB SCH ×3 (00:40→18:15)
[2021-04-29 06:29] LABS: #Lymphocytes 0.9 thou/uL (1.20-3.40); #Monocytes 0.9 thou/uL (0.11-0.59); #Neutrophils 8.5 thou/uL (1.40-6.50); %Basophils 0.3 % (0.0-1.0); %Eosinophils 0.4 % (0.0-10.0); %Lymphocytes 8.5 % (21.0-51.0); %Monocytes 8.7 % (0.0-10.0); %Neutrophils 82.2 % (42.0-75.0); Hemoglobin 8.9 g/dL (14.0-18.0); Mean Corpuscular HGB CONC 31.7 g/dL (32.0-36.0); Mean Corpuscular Hemoglobin 28.2 pg (27.0-31.0); Mean Corpuscular Volume 88.9 fL (78.0-98.0); Platelet Count 464 thou/uL (130-400); RBC Distribution Width 16.2 % (11.5-14.5); Red Blood Cell (RBC) Count 3.17 mill/uL (4.70-6.10); White Blood Cell (WBC) Count 10.3 thou/uL (4.8-10.8)
[2021-04-29 06:43] LABS: Anion Gap 12 mmol/L (10-20); BUN (Urea Nitrogen) 7 mg/dL (8.4-25.7); Calc. Creatinine Clearance 147 mL/min (70-130); Carbon Dioxide 26 mmol/L (23-31); Chloride 94 mmol/L (98-107); Glucose 102 mg/dL (83-110); Potassium 3.3 mmol/L (3.5-5.1); Sodium 129 mmol/L (136-145)
[2021-04-29] MEDS: Enoxaparin Sodium 40 MG/0.4 ML SYRINGE SC SCH (09:51)
[2021-04-29] MEDS: Thiamine 100 MG TAB PO SCH (09:52)
[2021-04-29] MEDS: Multivitamin W/ Minerals 1 TAB PO SCH (09:52)
[2021-04-29] MEDS: Folic Acid 1 MG TAB PO SCH (09:52)
[2021-04-29] MEDS: hydrALAZINE 25 MG TAB PO SCH ×3 (09:52→21:02)
[2021-04-29] MEDS: Metoprolol Tartrate 25 MG TAB PO SCH ×2 (09:53→21:04)
[2021-04-29] MEDS: Hydrochlorothiazide 25 MG TAB PO SCH (09:54)
[2021-04-29] MEDS: Lisinopril 20 MG TAB PO SCH ×2 (09:54→21:04)
[2021-04-29] MEDS ORDERED: Potassium Chloride 20 MEQ TAB PO SCH (12:15)
[2021-04-29] MEDS: Atorvastatin Calcium 10 MG TAB PO SCH (21:04)
[2021-04-30] MEDS: ceFAZolin Sodium/D5W 2 GM in Premix Bag 1 BAG IVPB SCH ×3 (01:35→17:30)
[2021-04-30] MEDS: Enoxaparin Sodium 40 MG/0.4 ML SYRINGE SC SCH (09:05)
[2021-04-30] MEDS: Multivitamin W/ Minerals 1 TAB PO SCH (09:07)
[2021-04-30] MEDS: Lisinopril 20 MG TAB PO SCH ×2 (09:07→21:05)
[2021-04-30] MEDS: hydrALAZINE 25 MG TAB PO SCH ×3 (09:09→21:05)
[2021-04-30] MEDS: Metoprolol Tartrate 25 MG TAB PO SCH ×2 (09:11→21:05)
[2021-04-30] MEDS: Folic Acid 1 MG TAB PO SCH (09:12)
[2021-04-30] MEDS: Hydrochlorothiazide 25 MG TAB PO SCH (09:13)
[2021-04-30] MEDS: Thiamine 100 MG TAB PO SCH (09:13)
[2021-04-30] MEDS ORDERED: Melatonin 3 MG TAB PO PRN (14:37)
[2021-04-30] MEDS ORDERED: Potassium Chloride 20 MEQ TAB PO SCH (15:00)
[2021-04-30] MEDS: HYDROcodone/Acetaminophen 5/325 mg Tablet PO PRN ×2 (16:19→22:12)
[2021-04-30] MEDS: Atorvastatin Calcium 10 MG TAB PO SCH (21:05)
[2021-05-01] MEDS: ceFAZolin Sodium/D5W 2 GM in Premix Bag 1 BAG IVPB SCH ×3 (01:10→17:41)
[2021-05-01 06:25] LABS: #Eosinphils 0.1 thou/uL (0.0-0.7); #Lymphocytes 0.9 thou/uL (1.20-3.40); #Monocytes 0.8 thou/uL (0.11-0.59); #Neutrophils 7.5 thou/uL (1.40-6.50); %Basophils 0.2 % (0.0-1.0); %Eosinophils 0.9 % (0.0-10.0); %Lymphocytes 9.9 % (21.0-51.0); %Monocytes 8.7 % (0.0-10.0); %Neutrophils 80.3 % (42.0-75.0); Hemoglobin 8.6 g/dL (14.0-18.0); Mean Corpuscular HGB CONC 31.5 g/dL (32.0-36.0); Mean Corpuscular Hemoglobin 28.3 pg (27.0-31.0); Mean Corpuscular Volume 89.6 fL (78.0-98.0); Mean Platelet Volume 7.6 fL (7.4-10.4); Platelet Count 410 thou/uL (130-400); RBC Distribution Width 16.4 % (11.5-14.5); Red Blood Cell (RBC) Count 3.05 mill/uL (4.70-6.10); White Blood Cell (WBC) Count 9.3 thou/uL (4.8-10.8)
[2021-05-01 06:44] LABS: Anion Gap 6 mmol/L (10-20); BUN (Urea Nitrogen) 5 mg/dL (8.4-25.7); Calc. Creatinine Clearance 142 mL/min (70-130); Carbon Dioxide 33 mmol/L (23-31); Chloride 94 mmol/L (98-107); Glucose 101 mg/dL (83-110); Potassium 3.3 mmol/L (3.5-5.1); Sodium 130 mmol/L (136-145)
[2021-05-01] MEDS ORDERED: Potassium Chloride 20 MEQ TAB PO SCH ×2 (07:00→18:00)
[2021-05-01] MEDS: Enoxaparin Sodium 40 MG/0.4 ML SYRINGE SC SCH (08:45)
[2021-05-01] MEDS: Lisinopril 20 MG TAB PO SCH ×2 (08:45→22:38)
[2021-05-01] MEDS: Multivitamin W/ Minerals 1 TAB PO SCH (08:45)
[2021-05-01] MEDS: Folic Acid 1 MG TAB PO SCH (08:46)
[2021-05-01] MEDS: Thiamine 100 MG TAB PO SCH (08:46)
[2021-05-01] MEDS: hydrALAZINE 25 MG TAB PO SCH ×3 (08:46→22:37)
[2021-05-01] MEDS: Metoprolol Tartrate 25 MG TAB PO SCH ×2 (08:46→22:37)
[2021-05-01] MEDS: Hydrochlorothiazide 25 MG TAB PO SCH (08:46)
[2021-05-01] MEDS: Acetaminophen/Codeine 30-300mg Tablet PO PRN ×2 (09:06→15:54)
[2021-05-01] MEDS ORDERED: Enalaprilat Dihydrate 1.25 MG/ML VIAL SLOW IVP PRN (15:17)
[2021-05-01] MEDS: HYDROcodone/Acetaminophen 5/325 mg Tablet PO PRN (18:27)
[2021-05-01] MEDS: Atorvastatin Calcium 10 MG TAB PO SCH (22:38)
[2021-05-02] MEDS: ceFAZolin Sodium/D5W 2 GM in Premix Bag 1 BAG IVPB SCH ×3 (01:54→18:18)
[2021-05-02 05:32] LABS: Anion Gap 8 mmol/L (10-20); BUN (Urea Nitrogen) 6 mg/dL (8.4-25.7); Calc. Creatinine Clearance 145 mL/min (70-130); Calcium 7.9 mg/dL (7.8-10.44); Carbon Dioxide 30 mmol/L (23-31); Chloride 93 mmol/L (98-107); Glucose 105 mg/dL (83-110); Magnesium 1.1 mg/dL (1.6-2.6); Potassium 3.4 mmol/L (3.5-5.1); Sodium 128 mmol/L (136-145)
[2021-05-02] MEDS ORDERED: Potassium Chloride 20 MEQ TAB PO SCH (05:45)
[2021-05-02] MEDS: Magnesium 2 GM/50 ML 2 GM in Premix Bag 1 BAG IVPB SCH ×2 (05:47→06:53)
[2021-05-02] MEDS: Hydrochlorothiazide 25 MG TAB PO SCH (09:13)
[2021-05-02] MEDS: Metoprolol Tartrate 25 MG TAB PO SCH ×2 (09:13→21:59)
[2021-05-02] MEDS: Enoxaparin Sodium 40 MG/0.4 ML SYRINGE SC SCH (09:13)
[2021-05-02] MEDS: Thiamine 100 MG TAB PO SCH (09:13)
[2021-05-02] MEDS: hydrALAZINE 25 MG TAB PO SCH ×3 (09:13→21:58)
[2021-05-02] MEDS: Multivitamin W/ Minerals 1 TAB PO SCH (09:13)
[2021-05-02] MEDS: Lisinopril 20 MG TAB PO SCH ×2 (09:14→22:00)
[2021-05-02] MEDS: Folic Acid 1 MG TAB PO SCH (09:14)
[2021-05-02 11:32] VITALS: BMI 24.1
[2021-05-02] MEDS ORDERED: Magnesium 2 GM/50 ML 2 GM in Premix Bag 1 BAG IVPB SCH (14:00)
[2021-05-02] MEDS: HYDROcodone/Acetaminophen 5/325 mg Tablet PO PRN (15:37)
[2021-05-02] MEDS: Atorvastatin Calcium 10 MG TAB PO SCH (22:00)
[2021-05-02] MEDS: Magnesium Oxide 400 MG TAB PO SCH (22:01)
[2021-05-03] MEDS: ceFAZolin Sodium/D5W 2 GM in Premix Bag 1 BAG IVPB SCH ×2 (02:22→08:17)
[2021-05-03 05:38] LABS: Magnesium 1.5 mg/dL (1.6-2.6)
[2021-05-03] MEDS ORDERED: Magnesium 2 GM/50 ML 2 GM in Premix Bag 1 BAG IVPB SCH (06:15)
[2021-05-03] MEDS: HYDROcodone/Acetaminophen 5/325 mg Tablet PO PRN (06:53)
[2021-05-03] MEDS: Enoxaparin Sodium 40 MG/0.4 ML SYRINGE SC SCH (08:19)
[2021-05-03] MEDS: Magnesium Oxide 400 MG TAB PO SCH (08:20)
[2021-05-03] MEDS: Hydrochlorothiazide 25 MG TAB PO SCH (08:20)
[2021-05-03] MEDS: Multivitamin W/ Minerals 1 TAB PO SCH (08:20)
[2021-05-03] MEDS: hydrALAZINE 25 MG TAB PO SCH (08:20)
[2021-05-03] MEDS: Lisinopril 20 MG TAB PO SCH (08:20)
[2021-05-03 08:21] VITALS: BP 182/77; TEMP 98.9
[2021-05-03] MEDS: Metoprolol Tartrate 25 MG TAB PO SCH (08:21)
[2021-05-03] MEDS: Folic Acid 1 MG TAB PO SCH (08:21)
[2021-05-03] MEDS: Thiamine 100 MG TAB PO SCH (08:22)
== END 2021-05-03 10:32 | DRG 853 ==
LOC: ERS 16:48 → ERHOLD 22:12 → 2NO 04-19 15:05 → SURG A 04-21 18:19
PROVIDERS: ADMIT Student in an Organized Health Care Education/Training Program; ATTEND Internal Medicine
PROC: 3E033XZ Introduction of Vasopressor into Peripheral Vein, Percutaneous Approach (ICD-10-PCS; principal; 2021-04-21)
PROC: 0R9U0ZZ Drainage of Right Metacarpophalangeal Joint, Open Approach (ICD-10-PCS; 2021-04-21)
PROC: 0LB70ZZ Excision of Right Hand Tendon, Open Approach (ICD-10-PCS; 2021-04-21)
PROC: 02HV33Z Insertion of Infusion Device into Superior Vena Cava, Percutaneous Approach (ICD-10-PCS; 2021-04-24)
PROC: B5181ZA Fluoroscopy of Superior Vena Cava using Low Osmolar Contrast, Guidance (ICD-10-PCS; 2021-04-24)
PROC: 30233N1 Transfusion of Nonautologous Red Blood Cells into Peripheral Vein, Percutaneous Approach (ICD-10-PCS; 2021-04-26)
PROC: 0QB00ZZ Excision of Lumbar Vertebra, Open Approach (ICD-10-PCS; 2021-04-26)
PROC: 01NB0ZZ Release Lumbar Nerve, Open Approach (ICD-10-PCS; 2021-04-26)
PROC: 01NR0ZZ Release Sacral Nerve, Open Approach (ICD-10-PCS; 2021-04-26)
PROC: 009U0ZZ Drainage of Spinal Canal, Open Approach (ICD-10-PCS; 2021-04-26)
PROC: 02HV33Z Insertion of Infusion Device into Superior Vena Cava, Percutaneous Approach (ICD-10-PCS; 2021-04-30)
PROC: B548ZZA Ultrasonography of Superior Vena Cava, Guidance (ICD-10-PCS; 2021-04-30)
PROC: B5181ZA Fluoroscopy of Superior Vena Cava using Low Osmolar Contrast, Guidance (ICD-10-PCS; 2021-04-30)
DX: A41.01 Sepsis due to Methicillin susceptible Staphylococcus aureus (principal); G93.41 Metabolic encephalopathy; G06.2 Extradural and subdural abscess, unspecified; L03.113 Cellulitis of right upper limb; M00.041 Staphylococcal arthritis, right hand; E87.1 Hypo-osmolality and hyponatremia; G83.4 Cauda equina syndrome; Z20.822 Contact with and (suspected) exposure to COVID-19; I48.0 Paroxysmal atrial fibrillation; M65.841 Other synovitis and tenosynovitis, right hand; K27.9 Peptic ulcer, site unspecified, unspecified as acute or chronic, without hemorrhage or perforation; I10 Essential (primary) hypertension; E78.5 Hyperlipidemia, unspecified; D64.9 Anemia, unspecified; F10.20 Alcohol dependence, uncomplicated; E87.6 Hypokalemia; M48.061 Spinal stenosis, lumbar region without neurogenic claudication; M51.16 Intervertebral disc disorders with radiculopathy, lumbar region; M46.46 Discitis, unspecified, lumbar region; K25.9 Gastric ulcer, unspecified as acute or chronic, without hemorrhage or perforation; R40.0 Somnolence; E83.42 Hypomagnesemia; Z91.81 History of falling; Z79.899 Other long term (current) drug therapy
CPT/HCPCS: 36415; 36430; 36569; 72100; 72158; 76000; 80048; 80053; 80307; 81003; 81015; 82140; 83605; 83735; 83880; 84550; 85025; 85652; 86140; 86850; 86900; 86901; 87040; 87070; 87077; 87102; 87116; 87186; 87205; 87206; 89060; 93005; 93306; 96365; 96366; 96367; 96372; 99283; C1751; C9113; J0171; J0690; J0692; J1100; J1644; J1650; J1885; J2001; J2250; J2270; J2405; J2704; J3010; J3370; J3475; J3490; J7050; P9016; S0020; U0002; U0003; U0005

== ENCOUNTER → 2021-05-21 | Day surgery (SDC) | payer MEDICARE | LOC: SPEC 10:31 | PROVIDERS: ATTEND Family Medicine | PROC: 02HV33Z Insertion of Infusion Device into Superior Vena Cava, Percutaneous Approach (ICD-10-PCS; principal; 2021-05-21) | DX: G04.91 Myelitis, unspecified (principal); Z79.2 Long term (current) use of antibiotics | CPT/HCPCS: 36569; C1751 ==

== ENCOUNTER → 2021-05-28 | Day surgery (SDC) | payer MEDICARE | LOC: SPEC 12:50 | PROVIDERS: ATTEND Family Medicine | PROC: 02HV33Z Insertion of Infusion Device into Superior Vena Cava, Percutaneous Approach (ICD-10-PCS; principal; 2021-05-28) | DX: B99.8 Other infectious disease (principal); G04.91 Myelitis, unspecified; Z79.2 Long term (current) use of antibiotics | CPT/HCPCS: 36569; C1751; J1644 ==

== ENCOUNTER 2021-07-02 09:56 | Inpatient (IN) | payer MEDICARE ==
[2021-07-02 11:08] LABS: #Eosinphils 0.1 thou/uL (0.0-0.7); #Lymphocytes 0.8 thou/uL (1.20-3.40); #Neutrophils 8.8 thou/uL (1.40-6.50); %Basophils 0.1 % (0.0-1.0); %Eosinophils 0.7 % (0.0-10.0); %Lymphocytes 7.3 % (21.0-51.0); %Monocytes 9.5 % (0.0-10.0); %Neutrophils 82.4 % (42.0-75.0); Hemoglobin 9.9 g/dL (14.0-18.0); Mean Corpuscular HGB CONC 32.7 g/dL (32.0-36.0); Mean Corpuscular Volume 88.8 fL (78.0-98.0); Mean Platelet Volume 7.2 fL (7.4-10.4); Platelet Count 283 thou/uL (130-400); RBC Distribution Width 14.4 % (11.5-14.5); White Blood Cell (WBC) Count 10.7 thou/uL (4.8-10.8)
[2021-07-02 11:22] LABS: ALT (SGPT) 11 U/L (8-55); AST (SGOT) 14 U/L (5-34); Alkaline Phosphatase 63 U/L (40-110); Anion Gap 11 mmol/L (10-20); BUN (Urea Nitrogen) 14 mg/dL (8.4-25.7); Bilirubin, Total 0.6 mg/dL (0.2-1.2); Calc. Creatinine Clearance 0 mL/min (70-130); Calcium 8.2 mg/dL (7.8-10.44); Carbon Dioxide 22 mmol/L (23-31); Chloride 95 mmol/L (98-107); Globulin 2.1 g/dL (2.4-3.5); Glucose 113 mg/dL (83-110); Lipase 50 U/L (8-78); Potassium 4.3 mmol/L (3.5-5.1); Protein, Total 5.1 g/dL (5.8-8.1); Sodium 124 mmol/L (136-145)
[2021-07-02] MEDS ORDERED: Atropine Sulfate 1 mg/10 ml Syringe ONE (12:05)
[2021-07-02 14:57] LABS: Troponin I Less than 0.010 ng/mL (< 0.028)
[2021-07-02 15:27] VITALS: BMI 23.0
[2021-07-02] MEDS ORDERED: Bisacodyl 5 MG TAB PO PRN (15:44)
[2021-07-02 16:02] LABS: Anion Gap 15 mmol/L (10-20); BUN (Urea Nitrogen) 14 mg/dL (8.4-25.7); Calc. Creatinine Clearance 90 mL/min (70-130); Carbon Dioxide 21 mmol/L (23-31); Chloride 95 mmol/L (98-107); Glucose 109 mg/dL (83-110); Potassium 5.1 mmol/L (3.5-5.1); Sodium 126 mmol/L (136-145)
[2021-07-02 16:03] LABS: Acetaminophen Less than 6.0 mcg/mL (10.0-30.0); Alcohol Less than 10 mg/dL (Less than 10); Salicylate Less than 8.0 mg/dL (15.0-30.0)
[2021-07-02 17:20] LABS: Troponin I Less than 0.010 ng/mL (< 0.028)
[2021-07-02 17:25] LABS: Phosphorus 3.9 mg/dL (2.3-4.7)
[2021-07-02] MEDS: Sodium Chloride 1 GM TAB PO SCH ×2 (17:27→21:08)
[2021-07-02 19:22] LABS: Anion Gap 11 mmol/L (10-20); BUN (Urea Nitrogen) 13 mg/dL (8.4-25.7); Calc. Creatinine Clearance 78 mL/min (70-130); Calcium 9.1 mg/dL (7.8-10.44); Carbon Dioxide 25 mmol/L (23-31); Chloride 95 mmol/L (98-107); Glucose 118 mg/dL (83-110); Potassium 4.5 mmol/L (3.5-5.1); Sodium 126 mmol/L (136-145)
[2021-07-02] MEDS ORDERED: hydrALAZINE 10 MG TAB PO SCH (21:00)
[2021-07-02] MEDS ORDERED: Lisinopril 20 MG TAB PO SCH (21:00)
[2021-07-02] MEDS: Atorvastatin Calcium 20 MG TAB PO SCH (21:08)
[2021-07-02] MEDS: Melatonin 3 MG TAB PO SCH (21:08)
[2021-07-02 23:25] LABS: Anion Gap 11 mmol/L (10-20); BUN (Urea Nitrogen) 14 mg/dL (8.4-25.7); Calc. Creatinine Clearance 82 mL/min (70-130); Carbon Dioxide 23 mmol/L (23-31); Chloride 96 mmol/L (98-107); Glucose 119 mg/dL (83-110); Potassium 4.1 mmol/L (3.5-5.1); Sodium 126 mmol/L (136-145)
[2021-07-03 03:07] LABS: Amphetamine Not Detected (NotDetected); Barbiturates Screen Not Detected (NotDetected); Benzodiazepine Screen Not Detected (NotDetected); Cocaine Metabolite Screen Not Detected (NotDetected); Methadone Not Detected (NotDetected); Methamphetamine Not Detected (NotDetected); Opiate Screen Not Detected (NotDetected); Oxycodone Screen Not Detected (NotDetected); Phencyclidine (PCP) Not Detected (NotDetected); THC/Cannabinoid Screen Not Detected (NotDetected); Tricyclic Screen Not Detected (NotDetected)
[2021-07-03 05:00] LABS: #Eosinphils 0.2 thou/uL (0.0-0.7); #Lymphocytes 1.1 thou/uL (1.20-3.40); #Monocytes 0.5 thou/uL (0.11-0.59); #Neutrophils 4.5 thou/uL (1.40-6.50); %Basophils 0.8 % (0.0-1.0); %Eosinophils 2.7 % (0.0-10.0); %Lymphocytes 17.5 % (21.0-51.0); %Monocytes 8.5 % (0.0-10.0); %Neutrophils 70.6 % (42.0-75.0); Hemoglobin 9.6 g/dL (14.0-18.0); Mean Corpuscular HGB CONC 33.3 g/dL (32.0-36.0); Mean Corpuscular Hemoglobin 29.5 pg (27.0-31.0); Mean Corpuscular Volume 88.6 fL (78.0-98.0); Mean Platelet Volume 7.2 fL (7.4-10.4); Platelet Count 282 thou/uL (130-400); RBC Distribution Width 14.5 % (11.5-14.5); Red Blood Cell (RBC) Count 3.25 mill/uL (4.70-6.10); White Blood Cell (WBC) Count 6.4 thou/uL (4.8-10.8)
[2021-07-03 05:23] LABS: Anion Gap 10 mmol/L (10-20); BUN (Urea Nitrogen) 13 mg/dL (8.4-25.7); Calc. Creatinine Clearance 90 mL/min (70-130); Calcium 9.4 mg/dL (7.8-10.44); Carbon Dioxide 26 mmol/L (23-31); Chloride 97 mmol/L (98-107); Glucose 102 mg/dL (83-110); Magnesium 1.4 mg/dL (1.6-2.6); Potassium 4.3 mmol/L (3.5-5.1); Sodium 129 mmol/L (136-145)
[2021-07-03] MEDS: Multivitamin W/ Minerals 1 TAB PO SCH (07:23)
[2021-07-03] MEDS: Folic Acid 1 MG TAB PO SCH (07:23)
[2021-07-03] MEDS: Enoxaparin Sodium 40 MG/0.4 ML SYRINGE SC SCH (07:23)
[2021-07-03] MEDS: Sodium Chloride 1 GM TAB PO SCH ×3 (07:23→21:38)
[2021-07-03] MEDS: Lisinopril 20 MG TAB PO SCH (07:24)
[2021-07-03] MEDS: Thiamine 100 MG TAB PO SCH (07:24)
[2021-07-03] MEDS ORDERED: Magnesium Sulfate 4 GM in Sodium Chloride 0.9% 250 ML 250 ML IVPB SCH (07:30)
[2021-07-03 13:00] LABS: SARS-CoV-2 PCR by NAA Not Detected (NotDetected)
[2021-07-03] MEDS ORDERED: Amlodipine 5 MG TAB PO SCH (13:45)
[2021-07-03] MEDS ORDERED: Amlodipine 10 MG TAB PO SCH (15:30)
[2021-07-03] MEDS: hydrALAZINE 20 MG/ML VIAL SLOW IVP PRN ×2 (15:33→21:38)
[2021-07-03] MEDS: Melatonin 3 MG TAB PO SCH (21:38)
[2021-07-03] MEDS: Atorvastatin Calcium 20 MG TAB PO SCH (21:38)
[2021-07-04] MEDS: Enoxaparin Sodium 40 MG/0.4 ML SYRINGE SC SCH (07:43)
[2021-07-04] MEDS: Thiamine 100 MG TAB PO SCH (07:43)
[2021-07-04] MEDS: Multivitamin W/ Minerals 1 TAB PO SCH (07:43)
[2021-07-04] MEDS: Lisinopril 20 MG TAB PO SCH (07:45)
[2021-07-04] MEDS: Folic Acid 1 MG TAB PO SCH (07:45)
[2021-07-04 08:18] LABS: Anion Gap 12 mmol/L (10-20); BUN (Urea Nitrogen) 7 mg/dL (8.4-25.7); Calc. Creatinine Clearance 97 mL/min (70-130); Calcium 9.7 mg/dL (7.8-10.44); Carbon Dioxide 26 mmol/L (23-31); Chloride 97 mmol/L (98-107); Glucose 99 mg/dL (83-110); Potassium 3.8 mmol/L (3.5-5.1); Sodium 131 mmol/L (136-145)
[2021-07-04] MEDS ORDERED: Amlodipine 5 MG TAB PO SCH ×2 (09:00)
[2021-07-04] MEDS ORDERED: Amlodipine 10 MG TAB PO SCH (09:00)
[2021-07-04] MEDS ORDERED: Metoprolol Tartrate 25 MG TAB PO SCH (09:00)
[2021-07-04] MEDS: Sodium Chloride 1 GM TAB PO SCH ×2 (10:00→15:12)
[2021-07-04 16:32] VITALS: BP 156/70; TEMP 98
== END 2021-07-04 19:15 | disposition home or self-care (01) | DRG 309 ==
LOC: ERS 09:56 → 2NO 13:38
PROVIDERS: ADMIT Internal Medicine; ATTEND Internal Medicine
DX: R00.1 Bradycardia, unspecified (principal); E22.2 Syndrome of inappropriate secretion of antidiuretic hormone; G93.40 Encephalopathy, unspecified; G91.9 Hydrocephalus, unspecified; Z20.822 Contact with and (suspected) exposure to COVID-19; I10 Essential (primary) hypertension; E78.5 Hyperlipidemia, unspecified; D64.9 Anemia, unspecified; F10.20 Alcohol dependence, uncomplicated; G93.89 Other specified disorders of brain; I45.10 Unspecified right bundle-branch block; Z79.899 Other long term (current) drug therapy; Z98.890 Other specified postprocedural states
CPT/HCPCS: 36415; 36416; 70450; 71045; 80048; 80053; 80306; 80307; 83605; 83690; 83735; 84100; 84484; 85025; 87040; 93005; 93306; 94760; 95712; 95819; 95957; 96374; J0360; J0461; J1650; J3475; J7050; U0003; U0005